=== PATIENT | female | born 1970 | race American Indian/Alaskan Native ===

== ENCOUNTER 2017-07-31 12:10 | Emergency (ER) | payer OTHER ==
--- NOTE | 2017-07-31 13:04 | Emergency Department Report ---
Chief Complaint: Abdominal Pain Stated Complaint: ABDOMINAL PAIN - HPI History of Present Illness: 46-year-old female past medical history ovarian tumors presents with complaint of 4 days of sharp suprapubic discomfort. Denies nausea or vomiting possible subjective fever and chills. Patient awake alert and oriented 3. Denies dysuria but possibly increased urinary frequency. - ROS Review of Systems: History of ovarian tumor resection - Exam Vital Signs: Vital Signs 07/31/17 12:53 Temperature 98.1 F Pulse Rate 69 Respiratory 16 Rate Blood Pressure 136/55 O2 Sat by Pulse 100 Oximetry Physical Exam: Positive suprapubic pain on exam MSE screening note: Focused history and physical exam performed. Due to findings the following was ordered: Screening Assessment/Plan/Differential Dx: Suprapubic pain, pelvic pain female 1- This initial assessment/diagnostic orders/clinical plan/ treatment(s) is/are subject to change based on pt's health status, clinical progression and re- assessment by fellow clinical providers in the ED. Further treatment and workup at subsequent clinical provers discretion. Patient/guardians urged not to elope from ED as their condition may be serious if not clinically assessed and managed. 2-urinalysis, CBC, BMP, STITCH MARKER ultrasound ED Disposition for MSE Condition: Stable Instructions: Abdominal Pain (ED)
--- NOTE | 2017-07-31 14:31 | Ultrasound Report ---
FINAL REPORT PROCEDURE: US TRANSVAGINAL TECHNIQUE: Real-time transvaginal sonography in multiple planes of the pelvis was performed with image documentation. This examination was performed without Doppler. Vascular abnormalities, including ovarian torsion, will not be detectable without Doppler evaluation. CPT 81213 HISTORY: pelvic pain COMPARISON: Transabdominal pelvic ultrasound also performed today. FINDINGS: Report for this exam was generated using images from both the transvaginal and transabdominal scan both of which were performed today. The uterus is anteverted measuring 15.2 x 10.1 x 11.3 centimeter. Mural nodules are present which shows mixed echogenicity and appear to represent fibroids. One is located in the anterior myometrium measuring 4.8 x 1.7 x 4.0 centimeters. One is located in the fundus of the uterus measuring 7.4 x 6.1 x 6.7 centimeter and a 3rd is located posteriorly in the uterine myometrium measuring 7.6 x 7.5 x 6.6 centimeters. Uterus is otherwise unremarkable. The endometrial stripe is not well visualized as it appears to be obscured by the uterine fibroids. Nabothian cysts are visualized. There is minimal nonspecific free fluid in the cul-de-sac. The right ovary was not visualized. No abnormal cystic or solid masses are seen in the right adnexa. The left ovary is visualized with only transabdominal scanning measuring 3.4 x 2.8 x 3.4 centimeter. Simple appearing 2.6 centimeters cyst visualize suggesting a maturing follicle. The technologist attempted Doppler imaging however this was unsuccessful and felt to be secondary to body habitus and location of the ovaries. IMPRESSION: Enlarged uterus secondary to at least 3 large uterine fibroids. The endometrial stripe is obscured by the fibroids and cannot be commented on. Small amount of nonspecific free fluid is seen in the cul-de-sac. Small nabothian cyst visualized. Simple appearing cyst left ovary suggesting maturing follicle. Right ovary was not visualized. No abnormal adnexal masses were seen on the right.
[2017-07-31 14:32] LABS: Basophils % (Auto) 0.6 % (0.0-1.8); Eosinophils % (Auto) 0.7 % (0.0-4.3); Hematocrit 35.9 % (30.3-42.9); Hemoglobin 11.5 gm/dl (10.1-14.3); Lymphocytes # (Auto) 1.6 K/mm3 (1.2-5.4); Mean Corpuscular HGB Conc 32 % (30-34); Mean Corpuscular Hemoglobin 29 pg (28-32); Mean Corpuscular Volume 89 fl (79-97); Monocytes # (Auto) 0.5 K/mm3 (0.0-0.8); Monocytes % (Auto) 7.9 % (0.0-7.3); Platelet Count 448 K/mm3 (140-440); Red Blood Count 4.05 M/mm3 (3.65-5.03); Red Cell Distribution Width 15.2 % (13.2-15.2)
--- NOTE | 2017-07-31 14:32 | Ultrasound Report ---
FINAL REPORT PROCEDURE: Transabdominal pelvic ultrasound TECHNIQUE: Real-time transabdominal sonography in multiple planes of pelvis was performed with image documentation. This examination was performed without Doppler. Vascular abnormalities, including ovarian torsion, will not be detectable without Doppler evaluation. CPT 23966 HISTORY: suprapubic and adnexal pain COMPARISON: Transvaginal pelvic ultrasound also performed today. FINDINGS: Report for this exam was generated using images from both the transabdominal and transvaginal scan both of which were performed today. The uterus is anteverted measuring 15.2 x 10.1 x 11.3 centimeter. Mural nodules are present which shows mixed echogenicity and appear to represent fibroids. One is located in the anterior myometrium measuring 4.8 x 1.7 x 4.0 centimeters. One is located in the fundus of the uterus measuring 7.4 x 6.1 x 6.7 centimeter and a 3rd is located posteriorly in the uterine myometrium measuring 7.6 x 7.5 x 6.6 centimeters. Uterus is otherwise unremarkable. The endometrial stripe is not well visualized as it appears to be obscured by the uterine fibroids. Nabothian cysts are visualized. There is minimal nonspecific free fluid in the cul-de-sac. The right ovary was not visualized. No abnormal cystic or solid masses are seen in the right adnexa. The left ovary is visualized with only transabdominal scanning measuring 3.4 x 2.8 x 3.4 centimeter. Simple appearing 2.6 centimeters cyst visualize suggesting a maturing follicle. The technologist attempted Doppler imaging however this was unsuccessful and felt to be secondary to body habitus and location of the ovaries. IMPRESSION: Enlarged uterus secondary to at least 3 large uterine fibroids. The endometrial stripe is obscured by the fibroids and cannot be commented on. Small amount of nonspecific free fluid is seen in the cul-de-sac. Small nabothian cyst visualized. Simple appearing cyst left ovary suggesting maturing follicle. Right ovary was not visualized. No abnormal adnexal masses were seen on the right.
[2017-07-31 14:56] LABS: BUN/Creatinine Ratio 15; Blood Urea Nitrogen 9 mg/dL (7-17); Calcium 9.1 mg/dL (8.4-10.2); Hemolysis Index 2
[2017-07-31 15:35] LABS: Bilirubin,Urine NEG (Negative); Blood,Urine MOD (Negative); Color,Urine Yellow (Yellow); Mucus,Urine FEW /HPF; Nitrite,Urine NEG (Negative); Protein,Urine <15 mg/dL mg/dL (Negative)
[2017-07-31 15:37] LABS: HCG Qualitative,Urine Negative (Negative)
--- NOTE | 2017-07-31 16:16 | Emergency Department Report ---
ED Female HPI - General Chief complaint: Abdominal Pain Stated complaint: ABDOMINAL PAIN Source: patient Mode of arrival: Ambulatory Limitations: No Limitations - History of Present Illness Initial comments: 46-year-old female past medical history ovarian tumor resection, tubal ligation presents with complaint of 4 days of suprapubic discomfort, crampy discomfort/ pain. She states she has been taking Motrin with minimal relief of her pain. Patient is awake alert and oriented 3 fully lucid and nontoxic appearing. Patient denies fever chills nausea vomiting. Urinating and defecating normally. Patient states she has a slightly increased urinary frequency. Patient states her last menstrual period began on 07/14/17. Vaginal bleeding ended approximately 6 days ago. Patient states that she came to the ED because ibuprofen was not helping her cramping. Denies vaginal discharge otherwise. States she has had pain of this quality in the past. MD Complaint: pelvic pain Onset/Timin -: days(s) Location: suprapubic Severity scale (0 -10): 5 Quality: cramping Consistency: intermittent Improves with: none Are you Now?: No Last Menstrual Period: 07/14/17 EDC: 04/20/18 - Related Data Sexually active: Yes Previous Rx's Medication Instructions Recorded Last Taken Type Azithromycin [Zithromax Z-RODRIGUEZ] 250 mg PO DAILY #6 tablet 07/26/14 Unknown Rx Codeine Phosphate/Guaifenesin 10 ml PO BID #118 ml 07/26/14 Unknown Rx [guaiFENesin-Codeine Syrup] Ibuprofen [Motrin 800 MG tab] 800 mg PO Q8H PRN #21 tablet 07/26/14 Unknown Rx Prednisone [Prednisone 5 mg (6-Day 5 mg PO .TAPER #1 tab.ds.pk 07/26/14 Unknown Rx Pack, 21 Tabs)] Acetaminophen/Codeine [Tylenol #3] 1 tab PO Q8H PRN #15 tablet 02/20/15 Unknown Rx Penicillin Vk [Veetids TAB] 500 mg PO Q8H #30 tablet 02/20/15 Unknown Rx Ibuprofen [Motrin 800 MG tab] 800 mg PO Q8HR PRN #15 tablet 06/09/15 Unknown Rx Acetaminophen/Codeine [Tylenol 1 tab PO Q6H PRN #12 tab 07/31/17 Unknown Rx /Codeine # 3 tab] Naproxen 500 mg PO BID PRN #30 tablet 07/31/17 Unknown Rx Nitrofurantoin Monohyd/M-Cryst 100 mg PO BID #14 capsule 07/31/17 Unknown Rx [Macrobid 100 mg Capsule] Allergies Allergy/AdvReac Type Severity Reaction Status Date / Time No Known Allergies Allergy Verified 02/20/15 18:30 ED Review of Systems ROS: Stated complaint: ABDOMINAL PAIN Other details as noted in HPI Constitutional: denies: chills, fever Eyes: denies: eye pain, eye discharge, vision change ENT: denies: ear pain, throat pain Respiratory: denies: cough, shortness of breath, wheezing Cardiovascular: denies: chest pain, palpitations Endocrine: no symptoms reported Gastrointestinal: denies: abdominal pain, nausea, diarrhea Genitourinary: as per HPI. denies: urgency, dysuria, discharge Musculoskeletal: denies: back pain, joint swelling, arthralgia Skin: denies: rash, lesions Neurological: denies: headache, weakness, paresthesias Psychiatric: denies: anxiety, depression Hematological/Lymphatic: denies: easy bleeding, easy bruising ED Past Medical Hx - Past Medical History Previous Medical History?: Yes Additional medical history: FIBROIDS - Surgical History Past Surgical History?: Yes Additional Surgical History: Partial hysterectomy - Social History Smoking Status: Never Smoker Substance Use Type: None - Medications Home Medications: Home Medications Medication Instructions Recorded Confirmed Last Taken Type Azithromycin [Zithromax Z-RODRIGUEZ] 250 mg PO DAILY #6 tablet 07/26/14 Unknown Rx Codeine Phosphate/Guaifenesin 10 ml PO BID #118 ml 07/26/14 Unknown Rx [guaiFENesin-Codeine Syrup] Ibuprofen [Motrin 800 MG tab] 800 mg PO Q8H PRN #21 tablet 07/26/14 Unknown Rx Prednisone [Prednisone 5 mg (6-Day 5 mg PO .TAPER #1 tab.ds.pk 07/26/14 Unknown Rx Pack, 21 Tabs)] Acetaminophen/Codeine [Tylenol #3] 1 tab PO Q8H PRN #15 tablet 02/20/15 Unknown Rx Penicillin Vk [Veetids TAB] 500 mg PO Q8H #30 tablet 02/20/15 Unknown Rx Ibuprofen [Motrin 800 MG tab] 800 mg PO Q8HR PRN #15 tablet 06/09/15 Unknown Rx Acetaminophen/Codeine [Tylenol 1 tab PO Q6H PRN #12 tab 07/31/17 Unknown Rx /Codeine # 3 tab] Naproxen 500 mg PO BID PRN #30 tablet 07/31/17 Unknown Rx Nitrofurantoin Monohyd/M-Cryst 100 mg PO BID #14 capsule 07/31/17 Unknown Rx [Macrobid 100 mg Capsule] ED Physical Exam - General Limitations: No Limitations General appearance: alert, in no apparent distress - Head Head exam: Present: atraumatic, normocephalic - Eye Eye exam: Present: normal appearance, PERRL, EOMI - ENT ENT exam: Present: mucous membranes moist - Neck Neck exam: Present: normal inspection - Respiratory Respiratory exam: Present: normal lung sounds bilaterally. Absent: respiratory distress - Cardiovascular Cardiovascular Exam: Present: regular rate, normal rhythm. Absent: systolic murmur, diastolic murmur, rubs, gallop - GI/Abdominal GI/Abdominal exam: Present: soft (some mild suprapubic pain on deep palpation), normal bowel sounds - External exam: Present: normal external exam - Extremities Exam Extremities exam: Present: normal inspection - Back Exam Back exam: Present: normal inspection - Neurological Exam Neurological exam: Present: alert, oriented X3, CN II-XII intact, normal gait - Psychiatric Psychiatric exam: Present: normal affect, normal mood - Skin Skin exam: Present: warm, dry, intact, normal color. Absent: rash ED Course Vital Signs 07/31/17 07/31/17 12:53 16:43 Temperature 98.1 F 98.6 F Pulse Rate 69 82 Respiratory 16 18 Rate Blood Pressure 136/55 Blood Pressure 160/88 [Right] O2 Sat by Pulse 100 100 Oximetry ED Medical Decision Making - Lab Data Result diagrams: 07/31/17 14:03 07/31/17 14:03 - Medical Decision Making A/P: Pelvic pain, uterine fibroids 1-ultrasound shows 3 large uterine fibroids. Pain is moderate. Will give patient trial of naproxen and short course Tylenol 3 when necessary 2-follow-up with [facility]. I advised patient that this is important for her medical condition 3-trace leukocytes, patient has urgency will give her Macrobid empirically 4-discussed with Dr. Contreras for discharge Critical care attestation.: If time is entered above; I have spent that time in minutes in the direct care of this critically ill patient, excluding procedure time. ED Disposition Clinical Impression: Pelvic pain Uterine fibroid Qualifiers: Uterine leiomyoma location: intramural Qualified Code(s): D25.1 - Intramural leiomyoma of uterus Disposition: TO HOME OR SELFCARE Is pt being admited?: No Does the pt Need Aspirin: No Condition: Stable Instructions: Uterine Fibroids (ED), Urinary Tract Infection in Women (ED), Abdominal Pain (ED) Prescriptions: Acetaminophen/Codeine [Tylenol /Codeine # 3 tab] 1 tab PO Q6H PRN #12 tab PRN Reason: Pain Naproxen 500 mg PO BID PRN #30 tablet PRN Reason: Pain Nitrofurantoin Monohyd/M-Cryst [Macrobid 100 mg Capsule] 100 mg PO BID #14 capsule Referrals: JW ANDERSON MD [Primary Care Provider] - 3-5 Days [facility] [Provider Group] - 3-5 Days [facility] [Provider [facility]] - 3-5 Days Forms: Work/School Release Form(ED) Time of Disposition: 16:20
[2017-07-31 16:45] VITALS: BP 160/88
== END 2017-07-31 16:43 | disposition home or self-care (01) ==
LOC: ED 12:10
DX: D25.9 Leiomyoma of uterus, unspecified (principal)
CPT/HCPCS: 36415; 76830; 80048; 81001; 81025; 85025; 87086; 93975; 99284

== ENCOUNTER 2018-11-11 07:33 | Inpatient (IN) | payer OTHER ==
[2018-11-11] MEDS ORDERED: ASPIRIN PO ONE (07:39)
[2018-11-11 08:04] LABS: Basophils % (Auto) 0.8 % (0.0-1.8); Eosinophils # (Auto) 0.1 K/mm3 (0.0-0.4); Eosinophils % (Auto) 1.5 % (0.0-4.3); Hematocrit 37.1 % (30.3-42.9); Hemoglobin 12.7 gm/dl (10.1-14.3); Lymphocytes # (Auto) 2.2 K/mm3 (1.2-5.4); Lymphocytes % (Auto) 42.5 % (13.4-35.0); Mean Corpuscular HGB Conc 34 % (30-34); Mean Corpuscular Volume 89 fl (79-97); Monocytes # (Auto) 0.7 K/mm3 (0.0-0.8); Monocytes % (Auto) 13.6 % (0.0-7.3); Platelet Count 332 K/mm3 (140-440); Red Blood Count 4.17 M/mm3 (3.65-5.03); Red Cell Distribution Width 13.8 % (13.2-15.2)
[2018-11-11 08:27] LABS: BUN/Creatinine Ratio 11; Blood Urea Nitrogen 10 mg/dL (7-17); Calcium 9.2 mg/dL (8.4-10.2); Hemolysis Index 15
--- NOTE | 2018-11-11 08:39 | Emergency Department Report ---
ED Chest Pain HPI - General Chief Complaint: Chest Pain Stated Complaint: CHEST PAIN Time Seen by Provider: 11/11/18 08:36 Source: patient Mode of arrival: Ambulatory Limitations: No Limitations - History of Present Illness Initial Comments: This is a 48-year-old female with no prior cardiac workup or visits to the emergency department for chest pain. She states that she was placed on an antibiotic by her dentist developed some abdominal queasiness. One day about a week ago she noted that she was additionally having squeezing in her chest. She took some Rolaids without relief. She has had intermittent episodes of chest squeezing for the last week. She had one last night which radiated to her right shoulder and down her left arm. He had a minimal amount of shortness of breath. She states that she has not experienced that before. She does not have chest squeezing at this time. Patient is not a smoker. She denies SA. She denies FH of CAD. She has not been treated for dyslipidemia. She is somewhat overweight. Pain is not pleuritic. She doesn't report any leg pain or swelling. MD Complaint: chest pain -: Gradual, week(s) Onset: during rest Pain Location: substernal Pain Radiation: LUE Severity: moderate Quality: squeezing Consistency: intermittent, now resolved Improves With: nothing Worsens With: nothing re: nausea, dyspnea Other Symptoms: other (think she has some GERD symptoms too). denies: cough, fever, syncope, rash Aspirin use within the Past 7 Days: (0) No - Related Data Previous Rx's Medication Instructions Recorded Last Taken Type Azithromycin [Zithromax Z-RODRIGUEZ] 250 mg PO DAILY #6 tablet 07/26/14 Unknown Rx Codeine Phosphate/Guaifenesin 10 ml PO BID #118 ml 07/26/14 Unknown Rx [guaiFENesin-Codeine Syrup] Ibuprofen [Motrin 800 MG tab] 800 mg PO Q8H PRN #21 tablet 07/26/14 Unknown Rx Prednisone [Prednisone 5 mg (6-Day 5 mg PO .TAPER #1 tab.ds.pk 07/26/14 Unknown Rx Pack, 21 Tabs)] Acetaminophen/Codeine [Tylenol #3] 1 tab PO Q8H PRN #15 tablet 02/20/15 Unknown Rx Penicillin Vk [Veetids TAB] 500 mg PO Q8H #30 tablet 02/20/15 Unknown Rx Ibuprofen [Motrin 800 MG tab] 800 mg PO Q8HR PRN #15 tablet 06/09/15 Unknown Rx Acetaminophen/Codeine [Tylenol 1 tab PO Q6H PRN #12 tab 07/31/17 Unknown Rx /Codeine # 3 tab] Naproxen 500 mg PO BID PRN #30 tablet 07/31/17 Unknown Rx Nitrofurantoin Monohyd/M-Cryst 100 mg PO BID #14 capsule 07/31/17 Unknown Rx [Macrobid 100 mg Capsule] Allergies Allergy/AdvReac Type Severity Reaction Status Date / Time No Known Allergies Allergy Verified 11/11/18 07:34 Heart Score - HEART Score History: Slightly suspicious EKG: Normal Age: 45-65 Risk factors: 1-2 risk factors Troponin: < normal limit HEART Score: 2 - Critical Actions Critical Actions: 0-3 pts:0.9-1.7%risk of adverse cardiac event.Candidate for discharge ED Review of Systems ROS: Stated complaint: CHEST PAIN Other details as noted in HPI Constitutional: denies: chills, fever Eyes: denies: eye pain, eye discharge, vision change ENT: denies: ear pain, throat pain Respiratory: denies: cough, shortness of breath, wheezing Cardiovascular: denies: chest pain, palpitations Endocrine: no symptoms reported Gastrointestinal: denies: abdominal pain, nausea, diarrhea Genitourinary: denies: urgency, dysuria, discharge Musculoskeletal: denies: back pain, joint swelling, arthralgia Skin: denies: rash, lesions Neurological: denies: headache, weakness, paresthesias Psychiatric: denies: anxiety, depression Hematological/Lymphatic: denies: easy bleeding, easy bruising ED Past Medical Hx - Past Medical History Additional medical history: FIBROIDS - Surgical History Additional Surgical History: Partial hysterectomy - Social History Smoking Status: Never Smoker Substance Use Type: None - Medications Home Medications: Home Medications Medication Instructions Recorded Confirmed Last Taken Type Azithromycin [Zithromax Z-RODRIGUEZ] 250 mg PO DAILY #6 tablet 07/26/14 Unknown Rx Codeine Phosphate/Guaifenesin 10 ml PO BID #118 ml 07/26/14 Unknown Rx [guaiFENesin-Codeine Syrup] Ibuprofen [Motrin 800 MG tab] 800 mg PO Q8H PRN #21 tablet 07/26/14 Unknown Rx Prednisone [Prednisone 5 mg (6-Day 5 mg PO .TAPER #1 tab.ds.pk 07/26/14 Unknown Rx Pack, 21 Tabs)] Acetaminophen/Codeine [Tylenol #3] 1 tab PO Q8H PRN #15 tablet 02/20/15 Unknown Rx Penicillin Vk [Veetids TAB] 500 mg PO Q8H #30 tablet 02/20/15 Unknown Rx Ibuprofen [Motrin 800 MG tab] 800 mg PO Q8HR PRN #15 tablet 06/09/15 Unknown Rx Acetaminophen/Codeine [Tylenol 1 tab PO Q6H PRN #12 tab 07/31/17 Unknown Rx /Codeine # 3 tab] Naproxen 500 mg PO BID PRN #30 tablet 07/31/17 Unknown Rx Nitrofurantoin Monohyd/M-Cryst 100 mg PO BID #14 capsule 07/31/17 Unknown Rx [Macrobid 100 mg Capsule] ED Physical Exam - General Limitations: No Limitations General appearance: alert, in no apparent distress - Head Head exam: Present: atraumatic, normocephalic - Eye Eye exam: Present: normal appearance. Absent: scleral icterus - ENT ENT exam: Present: mucous membranes moist - Neck Neck exam: Present: normal inspection. Absent: meningismus - Respiratory Respiratory exam: Present: normal lung sounds bilaterally. Absent: respiratory distress - Cardiovascular Cardiovascular Exam: Present: regular rate, normal rhythm. Absent: systolic murmur, diastolic murmur, rubs, gallop - GI/Abdominal GI/Abdominal exam: Present: soft, normal bowel sounds. Absent: distended, tenderness, guarding, rebound, rigid - Extremities Exam Extremities exam: Present: normal inspection - Back Exam Back exam: Present: normal inspection - Neurological Exam Neurological exam: Present: alert, oriented X3, CN II-XII intact. Absent: motor sensory deficit - Psychiatric Psychiatric exam: Present: normal mood, anxious - Skin Skin exam: Present: warm, dry, intact, normal color. Absent: rash ED Course Vital Signs 11/11/18 07:38 Temperature 97.7 F Pulse Rate 75 Respiratory 18 Rate Blood Pressure 112/91 O2 Sat by Pulse 99 Oximetry - Reevaluation(s) Reevaluation #1: Discussed with hospitalist. Further workup and evaluation per hospitalist team. 11/11/18 08:50 HAYLIE score - Haylie Score Age > 65: (0) No Aspirin use within the Past 7 Days: (0) No 3 or more CAD Risk Factors: (0) No 2 or more Angina events in past 24 hrs: (0) No Known CAD with more than 50% Stenosis: (0) No Elevated Cardiac Markers: (0) No ST Deviation Greater than 0.5mm: (0) No HAYLIE Score: 0 ED Medical Decision Making - Lab Data Result diagrams: 11/11/18 07:49 11/11/18 07:46 Laboratory Results - last 24 hr 11/11/18 11/11/18 07:46 07:49 WBC 5.2 RBC 4.17 Hgb 12.7 Hct 37.1 MCV 89 MCH 30 MCHC 34 RDW 13.8 Plt Count 332 Lymph % (Auto) 42.5 H [place] % (Auto) 13.6 H Eos % (Auto) 1.5 Baso % (Auto) 0.8 Lymph # 2.2 [place] # 0.7 Eos # 0.1 Baso # 0.0 Seg Neutrophils % 41.6 Seg Neutrophils # 2.2 Sodium 136 L Potassium 3.9 Chloride 102.4 Carbon Dioxide 23 Anion Gap 15 BUN 10 Creatinine 0.9 Estimated GFR > 60 BUN/Creatinine Ratio 11 Glucose 101 H Calcium 9.2 Troponin T < 0.010 - EKG Data -: EKG Interpreted by [place] EKG shows normal: sinus rhythm, axis, intervals, QRS complexes, ST-T waves Rate: normal - EKG Data Interpretation: normal EKG - Radiology Data Radiology results: report reviewed (no acute process), image reviewed Critical care attestation.: If time is entered above; I have spent that time in minutes in the direct care of this critically ill patient, excluding procedure time. ED Disposition Clinical Impression: Chest pain Qualifiers: Chest pain type: unspecified Qualified Code(s): R07.9 - Chest pain, unspecified Disposition: 09 OP ADMIT IP TO THIS HOSP Is pt being admited?: Yes Does the pt Need Aspirin: Yes Condition: Stable Instructions: Chest Pain (ED) Referrals: PRIMARY CARE, [Primary Care Provider] - 3-5 Days Time of Disposition: 08:51
[2018-11-11] MEDS ORDERED: PROTONIX PO ONE (08:52)
--- NOTE | 2018-11-11 09:09 | XRay Report ---
PROCEDURE: XR CHEST ROUTINE 2V TECHNIQUE: Chest radiograph, PA and lateral views. HISTORY: Chest Pain COMPARISONS: None currently available. FINDINGS: Cardiac silhouette is within normal limits. There is no effusion. There is no pneumothorax. There is no consolidation. There are no suspicious osseous lesions. IMPRESSION: * No acute cardiopulmonary findings. This document is electronically signed by Russell Haines MD., November 11 2018 09:07:18 AM ET
[2018-11-11] MEDS ORDERED: ZOFRAN IV PRN (13:45)
[2018-11-11] MEDS ORDERED: TYLENOL PO PRN (13:45)
--- NOTE | 2018-11-11 13:45 | History and Physical Report ---
History of Present Illness Date of admission: 11/11/18 08:52 Chief complaint: Chest pains History of present illness: Patient is a 48 yo woman with a history of anemia with menorrhagia from large fibroids and GERD who present to [facility] ED with severe intermittent nonradiating squeezing substernal chest pains without aggravating or relieving factors that started 1 week ago. She decided to come to the ED last night because CP started to radiate with numbling and tingling down left arm and lasted longer, 45 minutes. She has been taking ibuprofen for the fibroid pains. She was also took unspecified abx from a Dentist, made her nauseated. She took Tums without relief. PMH: as hpi PSH: p.hysterectomy, SH: no tob/etoh/drugs FH: hypertension, mother had AMI in her 50, survived breast cancer, still living ROS: Constitutional: denies: fever ENT: denies: throat or neck pain Respiratory: denies: cough, shortness of breath Cardiovascular: + chest pain Endocrine: denies unexplained weight loss or gain Gastrointestinal: + epigastic abdominal pain, nausea Genitourinary: denies: dysuria Rectal: denies no incontinence, no bleeding, no itching, no discharge Musculoskeletal: denies swelling, myaglia, muscle weakness Skin: denies: rash Neurological: denies: headache Hematological/Lymphatic: denies: easy bleeding or easy bruising Allergic/Immunologic: no urticaria, no allergic rhinitis, no anaphylaxis Psych: denies sadness or hopelessness, SI/HI Medications and Allergies Allergies Allergy/AdvReac Type Severity Reaction Status Date / Time No Known Allergies Allergy Verified 11/11/18 07:34 Home Medications Medication Instructions Recorded Confirmed Last Taken Type Ibuprofen [Motrin 800 MG tab] 800 mg PO Q8H PRN #21 tablet 07/26/14 11/11/18 Unknown Rx Ibuprofen [Motrin 800 MG tab] 800 mg PO Q8HR PRN #15 tablet 06/09/15 11/11/18 Unknown Rx Exam - Physical Exam Narrative exam: Gen: WDWN, NAD, Awake, Alert, Orientated x 3 HEENT: NCAT, EOMI, PERRL, OP Clear Neck: supple, no adenopathy, no thyromegaly, no JVD CVS/Heart: RRR, normal S1S2, pulses present bilaterally Chest/Lungs: CTA B, Symmetrical chest expansion, good air entry bilaterally GI/Abdomen: soft, epigastric tenderness, uterus in her stomach, good bowel sounds, no guarding or rebound /Bladder: no suprapubic tenderness, no CVA or paraspinal tenderness Extermity/Skin: no c/c/e, no obvious rash MSK: FROM x 4 Neuro: CN 2-12 grossly intact, no new focal deficits Psych: calm - Constitutional Vitals: Temp Pulse Resp BP Pulse Ox 97.7 F 74 16 148/78 99 11/11/18 07:38 11/11/18 10:17 11/11/18 10:17 11/11/18 10:17 11/11/18 10:17 Results - Labs CBC & Chem 7: 11/11/18 07:49 11/11/18 07:46 Labs: Abnormal lab results 11/11/18 11/11/18 Range/Units 07:46 07:49 Lymph % (Auto) 42.5 H (13.4-35.0) % [place] % (Auto) 13.6 H (0.0-7.3) % Sodium 136 L (137-145) mmol/L Glucose 101 H (65-100) mg/dL Assessment and Plan Patient is a 48 yo woman with a history of anemia with menorrhagia from large fibroids and GERD who present to [facility] ED with severe intermittent nonradiating squeezing substernal chest pains without aggravating or relieving factors that started 1 week ago. She decided to come to the ED last night because CP started to radiate with numbling and tingling down left arm and lasted longer, 45 minutes. She has been taking ibuprofen for the fibroid pains. She was also took unspecified abx from a Dentist, made her nauseated. She took Tums without relief. Chest pains appears atypical: stress test on Tuesday, stop Motrin advised, treat with pPi GERD related CP suspected: treat with PPi Anemia; monitor closely
[2018-11-11] MEDS ORDERED: K-DUR PO ONE ×2 (14:07→15:00)
[2018-11-11] MEDS ORDERED: MORPHINE ONE (14:08)
[2018-11-11] MEDS: MORPHINE IV PRN ×2 (14:21→23:06)
[2018-11-11] MEDS ORDERED: AMBIEN PO PRN (22:00)
[2018-11-12 08:07] LABS: Hematocrit 36.6 % (30.3-42.9); Hemoglobin 12.2 gm/dl (10.1-14.3); Mean Corpuscular HGB Conc 33 % (30-34); Mean Corpuscular Volume 90 fl (79-97); Platelet Count 322 K/mm3 (140-440); Red Blood Count 4.08 M/mm3 (3.65-5.03); Red Cell Distribution Width 13.9 % (13.2-15.2)
[2018-11-12 08:33] LABS: BUN/Creatinine Ratio 17; Blood Urea Nitrogen 12 mg/dL (7-17); Chol/HDL Ratio 3.78 %; HDL Cholesterol 38 mg/dL (40-59); Hemolysis Index 2; LDL Cholesterol,Direct 104 mg/dL (50-130)
--- NOTE | 2018-11-12 11:33 | Progress Note ---
Assessment and Plan Assessment and plan: Patient is a 48 yo woman with a history of anemia with menorrhagia from large fibroids and GERD who present to [facility] ED with severe intermittent nonradiating squeezing substernal chest pains without aggravating or relieving factors that started 1 week ago. She decided to come to the ED last night because CP started to radiate with numbling and tingling down left arm and lasted longer, 45 minutes. She has been taking ibuprofen for the fibroid pains. She was also took unspecified abx from a Dentist, made her nauseated. She took Tums without relief. Chest pains appears atypical: stress test on Tuesday, stop Motrin advised, treat with pPi GERD related CP suspected: treat with PPi H/o Anemia with fibroids, stable monitor closely Headaches, intermittent: pain control Stress test tomorrow, if negative then possible EGD Consulted GI History Interval history: Patient was seen and examined. Follow-up on current diagnosis of CP/epigastric pains and nausea, still present. Overnight uneventful. Patient denies any shortness breath. Imaging, nursing note, chart, labs and old chart reviewed. Discussed with patient. Also moderate pain control. Hospitalist Physical - Physical exam Narrative exam: Gen: WDWN, NAD, Awake, Alert, Orientated x 3 HEENT: NCAT, EOMI, PERRL, OP Clear Neck: supple, no adenopathy, no thyromegaly, no JVD CVS/Heart: RRR, normal S1S2, pulses present bilaterally Chest/Lungs: CTA B, Symmetrical chest expansion, good air entry bilaterally GI/Abdomen: soft, epigastric tenderness, uterus in her stomach, good bowel sounds, no guarding or rebound /Bladder: no suprapubic tenderness, no CVA or paraspinal tenderness Extermity/Skin: no c/c/e, no obvious rash MSK: FROM x 4 Neuro: CN 2-12 grossly intact, no new focal deficits Psych: calm - Constitutional Vitals: Temp Pulse Resp BP Pulse Ox 98.0 F 66 16 122/69 99 11/12/18 09:12 11/12/18 09:12 11/12/18 09:12 11/12/18 09:12 11/12/18 09:12 Results - Labs CBC & Chem 7: 11/12/18 07:38 11/12/18 07:38 Labs: Laboratory Last Values WBC 4.4 K/mm3 (4.5-11.0) L 11/12/18 07:38 RBC 4.08 M/mm3 (3.65-5.03) 11/12/18 07:38 Hgb 12.2 gm/dl (10.1-14.3) 11/12/18 07:38 Hct 36.6 % (30.3-42.9) 11/12/18 07:38 MCV 90 fl (79-97) 11/12/18 07:38 MCH 30 pg (28-32) 11/12/18 07:38 MCHC 33 % (30-34) 11/12/18 07:38 RDW 13.9 % (13.2-15.2) 11/12/18 07:38 Plt Count 322 K/mm3 (140-440) 11/12/18 07:38 Lymph % (Auto) 42.5 % (13.4-35.0) H 11/11/18 07:49 [place] % (Auto) 13.6 % (0.0-7.3) H 11/11/18 07:49 Eos % (Auto) 1.5 % (0.0-4.3) 11/11/18 07:49 Baso % (Auto) 0.8 % (0.0-1.8) 11/11/18 07:49 Lymph # 2.2 K/mm3 (1.2-5.4) 11/11/18 07:49 [place] # 0.7 K/mm3 (0.0-0.8) 11/11/18 07:49 Eos # 0.1 K/mm3 (0.0-0.4) 11/11/18 07:49 Baso # 0.0 K/mm3 (0.0-0.1) 11/11/18 07:49 Seg Neutrophils % 41.6 % (40.0-70.0) 11/11/18 07:49 Seg Neutrophils # 2.2 K/mm3 (1.8-7.7) 11/11/18 07:49 Sodium 139 mmol/L (137-145) 11/12/18 07:38 Potassium 4.2 mmol/L (3.6-5.0) 11/12/18 07:38 Chloride 106.6 mmol/L (98-107) 11/12/18 07:38 Carbon Dioxide 22 mmol/L (22-30) 11/12/18 07:38 Anion Gap 15 mmol/L 11/12/18 07:38 BUN 12 mg/dL (7-17) 11/12/18 07:38 Creatinine 0.7 mg/dL (0.7-1.2) 11/12/18 07:38 Estimated GFR > 60 ml/min 11/12/18 07:38 BUN/Creatinine Ratio 17 % 11/12/18 07:38 Glucose 101 mg/dL (65-100) H 11/12/18 07:38 Calcium 9.0 mg/dL (8.4-10.2) 11/12/18 07:38 Troponin T < 0.010 ng/mL (0.00-0.029) 11/11/18 13:26 Triglycerides 76 mg/dL (2-149) 11/12/18 07:38 Cholesterol 144 mg/dL (50-199) 11/12/18 07:38 LDL Cholesterol Direct 104 mg/dL (50-130) 11/12/18 07:38 HDL Cholesterol 38 mg/dL (40-59) L 11/12/18 07:38 Cholesterol/HDL Ratio 3.78 % 11/12/18 07:38 TSH 2.580 mlU/mL (0.270-4.200) 11/12/18 07:38 Active Medications - Current Medications Current Medications: Generic Name Dose Route Start Last Admin Trade Name Freq PRN Reason Stop Dose Admin Acetaminophen 650 mg 11/11/18 13:45 11/11/18 19:40 Tylenol PO 650 mg Q6H PRN Administration Non Cardiac Pain or Temp>100.5 Acetaminophen/Hydrocodone Bitart 1 each 11/11/18 13:45 [place] 5/325 PO Q4H PRN Pain, Moderate (4-6) Heparin Sodium (Porcine) 5,000 unit 11/12/18 14:00 Heparin SUB-Q Q12HR SCOOTER Morphine Sulfate 2 mg 11/11/18 13:45 11/11/18 23:06 Morphine IV 2 mg Q4H PRN Administration Pain , Severe (7-10) Ondansetron HCl 4 mg 11/11/18 13:45 Zofran IV Q4H PRN Nausea And Vomiting Zolpidem Tartrate 5 mg 11/11/18 22:00 Ambien PO QHS PRN Sleep
[2018-11-12] MEDS: PROTONIX PO SCH ×2 (13:42→21:51)
[2018-11-12] MEDS ORDERED: HEPARIN SUB-Q SCH (14:00)
[2018-11-12] MEDS: NORCO 5/325 PO PRN (21:51)
[2018-11-13 05:47] LABS: BUN/Creatinine Ratio 15; Blood Urea Nitrogen 12 mg/dL (7-17); Calcium 8.8 mg/dL (8.4-10.2); Hemolysis Index 8
[2018-11-13 05:55] LABS: Hematocrit 36.3 % (30.3-42.9); Hemoglobin 12.4 gm/dl (10.1-14.3); Mean Corpuscular Volume 89 fl (79-97); Red Blood Count 4.09 M/mm3 (3.65-5.03)
[2018-11-13 05:56] LABS: Mean Corpuscular HGB Conc 34 % (30-34); Platelet Count 312 K/mm3 (140-440); Red Cell Distribution Width 13.8 % (13.2-15.2)
--- NOTE | 2018-11-13 09:04 | Progress Note ---
Assessment and Plan Assessment and plan: Patient is a 48 yo woman with a history of anemia with menorrhagia from large fibroids and GERD who present to [facility] ED with severe intermittent nonradiating squeezing substernal chest pains without aggravating or relieving factors that started 1 week ago. She decided to come to the ED last night because CP started to radiate with numbling and tingling down left arm and lasted longer, 45 minutes. She has been taking ibuprofen for the fibroid pains. She was also took unspecified abx from a Dentist, made her nauseated. She took Tums without relief. Chest pains appears atypical: stress test on Tuesday, stop Motrin advised, treat with pPi GERD related CP suspected: treat with PPi and consulted GI H/o Anemia with fibroids, stable monitor closely Headaches: pain control, CT head DVT ppx; sq heparin Stress test today, if negative then possible EGD follow up Ct head for continous headaches Consulted GI Disposition: continue inpatient care, hopefully d/c today if stress test negative and GI clears History Interval history: Patient was seen and examined. Follow-up on current diagnosis of CP/epigastric pains and nausea, still present. Overnight uneventful. Patient denies any shortness breath. Imaging, nursing note, chart, labs and old chart reviewed. Discussed with patient. Also moderate pain control. Hospitalist Physical - Physical exam Narrative exam: Gen: WDWN, NAD, Awake, Alert, Orientated x 3 HEENT: NCAT, EOMI, PERRL, OP Clear Neck: supple, no adenopathy, no thyromegaly, no JVD CVS/Heart: RRR, normal S1S2, pulses present bilaterally Chest/Lungs: CTA B, Symmetrical chest expansion, good air entry bilaterally GI/Abdomen: soft, epigastric tenderness, uterus in her stomach, good bowel sounds, no guarding or rebound /Bladder: no suprapubic tenderness, no CVA or paraspinal tenderness Extermity/Skin: no c/c/e, no obvious rash MSK: FROM x 4 Neuro: CN 2-12 grossly intact, no new focal deficits Psych: calm - Constitutional Vitals: Temp Pulse Resp BP Pulse Ox 97.4 F L 66 20 125/75 100 11/13/18 04:56 11/13/18 04:56 11/13/18 04:56 11/13/18 04:56 11/13/18 04:56 Results - Labs CBC & Chem 7: 11/13/18 05:11 11/13/18 05:11 Labs: Laboratory Last Values WBC 4.5 K/mm3 (4.5-11.0) 11/13/18 05:11 RBC 4.09 M/mm3 (3.65-5.03) 11/13/18 05:11 Hgb 12.4 gm/dl (10.1-14.3) 11/13/18 05:11 Hct 36.3 % (30.3-42.9) 11/13/18 05:11 MCV 89 fl (79-97) 11/13/18 05:11 MCH 30 pg (28-32) 11/13/18 05:11 MCHC 34 % (30-34) 11/13/18 05:11 RDW 13.8 % (13.2-15.2) 11/13/18 05:11 Plt Count 312 K/mm3 (140-440) 11/13/18 05:11 Lymph % (Auto) 42.5 % (13.4-35.0) H 11/11/18 07:49 [place] % (Auto) 13.6 % (0.0-7.3) H 11/11/18 07:49 Eos % (Auto) 1.5 % (0.0-4.3) 11/11/18 07:49 Baso % (Auto) 0.8 % (0.0-1.8) 11/11/18 07:49 Lymph # 2.2 K/mm3 (1.2-5.4) 11/11/18 07:49 [place] # 0.7 K/mm3 (0.0-0.8) 11/11/18 07:49 Eos # 0.1 K/mm3 (0.0-0.4) 11/11/18 07:49 Baso # 0.0 K/mm3 (0.0-0.1) 11/11/18 07:49 Seg Neutrophils % 41.6 % (40.0-70.0) 11/11/18 07:49 Seg Neutrophils # 2.2 K/mm3 (1.8-7.7) 11/11/18 07:49 Sodium 139 mmol/L (137-145) 11/13/18 05:11 Potassium 4.1 mmol/L (3.6-5.0) 11/13/18 05:11 Chloride 105.2 mmol/L (98-107) 11/13/18 05:11 Carbon Dioxide 24 mmol/L (22-30) 11/13/18 05:11 Anion Gap 14 mmol/L 11/13/18 05:11 BUN 12 mg/dL (7-17) 11/13/18 05:11 Creatinine 0.8 mg/dL (0.7-1.2) 11/13/18 05:11 Estimated GFR > 60 ml/min 11/13/18 05:11 BUN/Creatinine Ratio 15 % 11/13/18 05:11 Glucose 109 mg/dL (65-100) H 11/13/18 05:11 Calcium 8.8 mg/dL (8.4-10.2) 11/13/18 05:11 Troponin T < 0.010 ng/mL (0.00-0.029) 11/11/18 13:26 Triglycerides 76 mg/dL (2-149) 11/12/18 07:38 Cholesterol 144 mg/dL (50-199) 11/12/18 07:38 LDL Cholesterol Direct 104 mg/dL (50-130) 11/12/18 07:38 HDL Cholesterol 38 mg/dL (40-59) L 11/12/18 07:38 Cholesterol/HDL Ratio 3.78 % 11/12/18 07:38 Lipase 24 units/L (13-60) 11/13/18 05:11 TSH 2.580 mlU/mL (0.270-4.200) 11/12/18 07:38 Active Medications - Current Medications Current Medications: Generic Name Dose Route Start Last Admin Trade Name Freq PRN Reason Stop Dose Admin Acetaminophen 650 mg 11/11/18 13:45 11/11/18 19:40 Tylenol PO 650 mg Q6H PRN Administration Non Cardiac Pain or Temp>100.5 Acetaminophen/Hydrocodone Bitart 1 each 11/11/18 13:45 11/12/18 21:51 [place] 5/325 PO 1 each Q4H PRN Administration Pain, Moderate (4-6) Morphine Sulfate 2 mg 11/11/18 13:45 11/11/18 23:06 Morphine IV 2 mg Q4H PRN Administration Pain , Severe (7-10) Ondansetron HCl 4 mg 11/11/18 13:45 Zofran IV Q4H PRN Nausea And Vomiting Pantoprazole Sodium 40 mg 11/12/18 13:00 11/12/18 21:51 Protonix PO 40 mg BID SCOOTER Administration Zolpidem Tartrate 5 mg 11/11/18 22:00 Ambien PO QHS PRN Sleep
--- NOTE | 2018-11-13 09:07 | Progress Note ---
Assessment and Plan Assessment and plan: Patient is a 48 yo woman with a history of anemia with menorrhagia from large fibroids and GERD who present to [facility] ED with severe intermittent nonradiating squeezing substernal chest pains without aggravating or relieving factors that started 1 week ago. She decided to come to the ED last night because CP started to radiate with numbling and tingling down left arm and lasted longer, 45 minutes. She has been taking ibuprofen for the fibroid pains. She was also took unspecified abx from a Dentist, made her nauseated. She took Tums without relief. Chest pains appears atypical: stress test on Tuesday, stop Motrin advised, treat with pPi GERD related CP suspected: treat with PPi and consulted GI H/o Anemia with fibroids, stable monitor closely Headaches: pain control, CT head DVT ppx; sq heparin Stress test today, if negative then possible EGD follow up Ct head for continuos headaches Consulted GI Disposition: hopefully d/c today if stress test negative and GI clears History Interval history: Patient was seen and examined. Follow-up on current diagnosis of CP/epigastric pains and nausea, still present. Overnight uneventful. Patient denies any shortness breath. Imaging, nursing note, chart, labs and old chart reviewed. D iscussed with patient. Also moderate pain control. Hospitalist Physical - Physical exam Narrative exam: Gen: WDWN, NAD, Awake, Alert, Orientated x 3 HEENT: NCAT, EOMI, PERRL, OP Clear Neck: supple, no adenopathy, no thyromegaly, no JVD CVS/Heart: RRR, normal S1S2, pulses present bilaterally Chest/Lungs: CTA B, Symmetrical chest expansion, good air entry bilaterally GI/Abdomen: soft, epigastric tenderness, uterus in her stomach, good bowel sounds, no guarding or rebound /Bladder: no suprapubic tenderness, no CVA or paraspinal tenderness Extermity/Skin: no c/c/e, no obvious rash MSK: FROM x 4 Neuro: CN 2-12 grossly intact, no new focal deficits Psych: calm - Constitutional Vitals: Temp Pulse Resp BP Pulse Ox 97.4 F L 66 20 125/75 100 11/13/18 04:56 11/13/18 04:56 11/13/18 04:56 11/13/18 04:56 11/13/18 04:56 Results - Labs CBC & Chem 7: 11/13/18 05:11 11/13/18 05:11 Labs: Laboratory Last Values WBC 4.5 K/mm3 (4.5-11.0) 11/13/18 05:11 RBC 4.09 M/mm3 (3.65-5.03) 11/13/18 05:11 Hgb 12.4 gm/dl (10.1-14.3) 11/13/18 05:11 Hct 36.3 % (30.3-42.9) 11/13/18 05:11 MCV 89 fl (79-97) 11/13/18 05:11 MCH 30 pg (28-32) 11/13/18 05:11 MCHC 34 % (30-34) 11/13/18 05:11 RDW 13.8 % (13.2-15.2) 11/13/18 05:11 Plt Count 312 K/mm3 (140-440) 11/13/18 05:11 Lymph % (Auto) 42.5 % (13.4-35.0) H 11/11/18 07:49 [place] % (Auto) 13.6 % (0.0-7.3) H 11/11/18 07:49 Eos % (Auto) 1.5 % (0.0-4.3) 11/11/18 07:49 Baso % (Auto) 0.8 % (0.0-1.8) 11/11/18 07:49 Lymph # 2.2 K/mm3 (1.2-5.4) 11/11/18 07:49 [place] # 0.7 K/mm3 (0.0-0.8) 11/11/18 07:49 Eos # 0.1 K/mm3 (0.0-0.4) 11/11/18 07:49 Baso # 0.0 K/mm3 (0.0-0.1) 11/11/18 07:49 Seg Neutrophils % 41.6 % (40.0-70.0) 11/11/18 07:49 Seg Neutrophils # 2.2 K/mm3 (1.8-7.7) 11/11/18 07:49 Sodium 139 mmol/L (137-145) 11/13/18 05:11 Potassium 4.1 mmol/L (3.6-5.0) 11/13/18 05:11 Chloride 105.2 mmol/L (98-107) 11/13/18 05:11 Carbon Dioxide 24 mmol/L (22-30) 11/13/18 05:11 Anion Gap 14 mmol/L 11/13/18 05:11 BUN 12 mg/dL (7-17) 11/13/18 05:11 Creatinine 0.8 mg/dL (0.7-1.2) 11/13/18 05:11 Estimated GFR > 60 ml/min 11/13/18 05:11 BUN/Creatinine Ratio 15 % 11/13/18 05:11 Glucose 109 mg/dL (65-100) H 11/13/18 05:11 Calcium 8.8 mg/dL (8.4-10.2) 11/13/18 05:11 Troponin T < 0.010 ng/mL (0.00-0.029) 11/11/18 13:26 Triglycerides 76 mg/dL (2-149) 11/12/18 07:38 Cholesterol 144 mg/dL (50-199) 11/12/18 07:38 LDL Cholesterol Direct 104 mg/dL (50-130) 11/12/18 07:38 HDL Cholesterol 38 mg/dL (40-59) L 11/12/18 07:38 Cholesterol/HDL Ratio 3.78 % 11/12/18 07:38 Lipase 24 units/L (13-60) 11/13/18 05:11 TSH 2.580 mlU/mL (0.270-4.200) 11/12/18 07:38 Active Medications - Current Medications Current Medications: Generic Name Dose Route Start Last Admin Trade Name Freq PRN Reason Stop Dose Admin Acetaminophen 650 mg 11/11/18 13:45 11/11/18 19:40 Tylenol PO 650 mg Q6H PRN Administration Non Cardiac Pain or Temp>100.5 Acetaminophen/Hydrocodone Bitart 1 each 11/11/18 13:45 11/12/18 21:51 [place] 5/325 PO 1 each Q4H PRN Administration Pain, Moderate (4-6) Heparin Sodium (Porcine) 5,000 unit 11/14/18 22:00 Heparin SUB-Q Q12HR SCOOTER Morphine Sulfate 2 mg 11/11/18 13:45 11/11/18 23:06 Morphine IV 2 mg Q4H PRN Administration Pain , Severe (7-10) Ondansetron HCl 4 mg 11/11/18 13:45 Zofran IV Q4H PRN Nausea And Vomiting Pantoprazole Sodium 40 mg 11/12/18 13:00 11/12/18 21:51 Protonix PO 40 mg BID SCOOTER Administration Zolpidem Tartrate 5 mg 11/11/18 22:00 Ambien PO QHS PRN Sleep
--- NOTE | 2018-11-13 09:12 | Discharge Summary ---
Providers - Providers Date of Admission: 11/11/18 08:52 Date of discharge: 11/13/18 Attending physician: CHAZ ZARAGOZA 11/12/18 11:28 Consult to Physician [CONS] Routine Comment: Consulting Provider: JAE JIANG Physician Instructions: Reason For Exam: Abd pains,intractable nausea [facility] Hospital[facility] Condition: Stable Hospital course: Patient is a 48 yo woman with a history of anemia with menorrhagia from large fibroids and GERD who present to [facility] ED with severe intermittent nonradiating squeezing substernal chest pains without aggravating or relieving factors that started 1 week ago. She decided to come to the ED last night because CP started to radiate with numbling and tingling down left arm and lasted longer, 45 minutes. She has been taking ibuprofen for the fibroid pains. She was also took unspecified abx from a Dentist, made her nauseated. She took Tums without reli ef. Chest pains appears atypical: stress test on Tuesday, stop Motrin advised, treat with pPi GERD related CP suspected: treat with PPi and consulted GI H/o Anemia with fibroids, stable monitor closely Headaches: pain control, CT head DVT ppx; sq heparin Stress test today, if negative then possible EGD follow up Ct head for continuos headaches Consulted GI Disposition: hopefully d/c today if stress test negative and GI clears Disposition: DC-01 TO HOME OR SELFCARE Time spent for discharge: 35 minutes Core Measure Documentation - Palliative Care Palliative Care/ Comfort Measures: Not Applicable - Core Measures Any of the following diagnoses?: none - VTE Discharge Requirements Deep Vein Thrombosis/Pulmonary Embolism Present on Admission: No Has pt received <5 days of overlap therapy or INR<2.0: No Anticoagulant overlap therapy prescribed at discharge: No Contraindication No Overlap Therapy order at DC: Not Indicated Exam - Physical Exam Narrative exam: Gen: WDWN, NAD, Awake, Alert, Orientated x 3 HEENT: NCAT, EOMI, PERRL, OP Clear Neck: supple, no adenopathy, no thyromegaly, no JVD CVS/Heart: RRR, normal S1S2, pulses present bilaterally Chest/Lungs: CTA B, Symmetrical chest expansion, good air entry bilaterally GI/Abdomen: soft, epigastric tenderness, uterus in her stomach, good bowel sounds, no guarding or rebound /Bladder: no suprapubic tenderness, no CVA or paraspinal tenderness Extermity/Skin: no c/c/e, no obvious rash MSK: FROM x 4 Neuro: CN 2-12 grossly intact, no new focal deficits Psych: calm - Constitutional Vitals: Temp Pulse Resp BP Pulse Ox 97.4 F L 66 20 125/75 100 11/13/18 04:56 11/13/18 04:56 11/13/18 04:56 11/13/18 04:56 11/13/18 04:56 Plan Activity: other (no strenous activity until cleared by PCP) Diet: regular Follow up with: PRIMARY CAREMD [Referring] - 3-5 Days ANALILIA ANN MD [Staff Physician] - 7 Days JAE JIANG MD [Staff Physician] - 7 Days Forms: Work/School Release Form Prescriptions: HYDROcodone/APAP 5-325 [[place] 5-325 mg TAB] 1 each PO Q4H PRN #15 tablet PRN Reason: Pain, Moderate (4-6) Pantoprazole [Protonix TAB] 40 mg PO BID 30 Days tablet
[2018-11-13] MEDS: PROTONIX PO SCH ×2 (10:00→21:59)
--- NOTE | 2018-11-13 10:52 | Gastroenterology Consultation ---
<MARIIA DARLING - Last Filed: 11/13/18 11:10> History of Present Illness - Reason for Consult Consult date: 11/13/18 abdominal pain, intractable nausea Requesting physician: CHAZ ZARAGOZA - History of Present Illness Patient is a 48 y/o female with PMH of anemia with menorrhagia from large fibroids who presented to ED with c/o CP with associated epigastric pain and nausea to which GI has been consulted. Pain is described as a squeezing sensation and radiates from abdomen to her chest, shoulder, back, and left arm. Symptoms are worse with PO intake. Denies fever, wt loss, SOB, signs of bleeding, or LGI symptom. Took Tums at home for symptoms w/o relief. Was recently taking antibiotics from a dentist, with associated nausea. Takes I buprofen occasionally (3x/month on average). Had 1 episode of dysphagia to solids 1 month ago due to not chewing her food well, but has had no other difficulty swallowing since that time. No odynophagia. Never been treated for GERD in the past. No hx of PUD or prior EGD. Past History Past Medical History: other (anemia 2/2 large fibroids) Past Surgical History: , hysterectomy (partial?) Social history: denies: smoking, alcohol abuse Family history: CAD, hypertension, other (breast cancer) Medications and Allergies Allergies Allergy/AdvReac Type Severity Reaction Status Date / Time No Known Allergies Allergy Verified 11/11/18 07:34 Home Medications Medication Instructions Recorded Confirmed Last Taken Type Acetaminophen [Acetaminophen TAB] 325 mg PO Q6H PRN #15 tablet 11/13/18 Unknown Rx HYDROcodone/APAP 5-325 [[place] 1 each PO Q4H PRN #15 tablet 11/13/18 Unknown Rx 5-325 mg TAB] Pantoprazole [Protonix TAB] 40 mg PO BID 30 Days tablet 11/13/18 Unknown Rx Active Meds: Active Medications Acetaminophen (Tylenol) 650 mg PO Q6H PRN PRN Reason: Non Cardiac Pain or Temp>100.5 Last Admin: 11/11/18 19:40 Dose: 650 mg Documented by: Acetaminophen/Hydrocodone Bitart ([place] 5/325) 1 each PO Q4H PRN PRN Reason: Pain, Moderate (4-6) Last Admin: 11/12/18 21:51 Dose: 1 each Documented by: Heparin Sodium (Porcine) (Heparin) 5,000 unit SUB-Q Q12HR [facility] Morphine Sulfate (Morphine) 2 mg IV Q4H PRN PRN Reason: Pain , Severe (7-10) Last Admin: 11/11/18 23:06 Dose: 2 mg Documented by: Ondansetron HCl (Zofran) 4 mg IV Q4H PRN PRN Reason: Nausea And Vomiting Pantoprazole Sodium (Protonix) 40 mg PO BID [facility] Last Admin: 11/12/18 21:51 Dose: 40 mg Documented by: Zolpidem Tartrate (Ambien) 5 mg PO QHS PRN PRN Reason: Sleep medications reviewed/updated as required Review of Systems - Review of Systems All systems: negative Cardiovascular: chest pain Gastrointestinal: abdominal pain (epigastric), nausea Exam - Constitutional Vital Signs: Temp Pulse Resp BP Pulse Ox 97.4 F L 66 20 125/75 100 11/13/18 04:56 11/13/18 04:56 11/13/18 04:56 11/13/18 04:56 11/13/18 04:56 General appearance: no acute distress, obese - EENT Eyes: PERRL, EOM intact ENT: hearing intact - Respiratory Respiratory: bilateral: CTA - Cardiovascular Rhythm: regular - Gastrointestinal General gastrointestinal: Present: soft, tender (slight TTP in epigastric area), non-distended, normal bowel sounds - Neurologic Neurological: alert and oriented x3 - Labs CBC & Chem 7: 11/13/18 05:11 11/13/18 05:11 Lab Results: Laboratory Results - last 24 hr 11/13/18 11/13/18 05:11 05:11 WBC 4.5 RBC 4.09 Hgb 12.4 Hct 36.3 MCV 89 MCH 30 MCHC 34 RDW 13.8 Plt Count 312 Sodium 139 Potassium 4.1 Chloride 105.2 Carbon Dioxide 24 Anion Gap 14 BUN 12 Creatinine 0.8 Estimated GFR > 60 BUN/Creatinine Ratio 15 Glucose 109 H Calcium 8.8 Lipase 24 Assessment and Plan 1.epigastric pain 2.nausea -afebrile -WBC, H/H, and lipase WNL -etiology unclear-possible peptic vs GB vs other -will order hepatic panel and abd U/S -consider EGD based on clinical course once cleared by cardiology (stress test pending for today) -continue PPI -continue supportive care -will follow 3.CP -CXR negative -troponin negative -stress test today <TUAN MOSES - Last Filed: 11/13/18 15:54> Medications and Allergies Active Meds: Active Medications Acetaminophen (Tylenol) 650 mg PO Q6H PRN PRN Reason: Non Cardiac Pain or Temp>100.5 Last Admin: 11/11/18 19:40 Dose: 650 mg Documented by: Acetaminophen/Hydrocodone Bitart ([place] 5/325) 1 each PO Q4H PRN PRN Reason: Pain, Moderate (4-6) Last Admin: 11/12/18 21:51 Dose: 1 each Documented by: Heparin Sodium (Porcine) (Heparin) 5,000 unit SUB-Q Q12HR [facility] Morphine Sulfate (Morphine) 2 mg IV Q4H PRN PRN Reason: Pain , Severe (7-10) Last Admin: 11/11/18 23:06 Dose: 2 mg Documented by: Ondansetron HCl (Zofran) 4 mg IV Q4H PRN PRN Reason: Nausea And Vomiting Pantoprazole Sodium (Protonix) 40 mg PO BID [facility] Last Admin: 11/13/18 10:00 Dose: Not Given Documented by: Zolpidem Tartrate (Ambien) 5 mg PO QHS PRN PRN Reason: Sleep Exam - Constitutional Vital Signs: Temp Pulse Resp BP Pulse Ox 97.4 F L 66 20 118/67 100 11/13/18 04:56 11/13/18 04:56 11/13/18 04:56 11/13/18 11:19 11/13/18 04:56 - Labs CBC & Chem 7: 11/13/18 05:11 11/13/18 05:11 Lab Results: Laboratory Results - last 24 hr 11/13/18 11/13/18 11/13/18 05:11 05:11 05:11 WBC 4.5 RBC 4.09 Hgb 12.4 Hct 36.3 MCV 89 MCH 30 MCHC 34 RDW 13.8 Plt Count 312 Sodium 139 Potassium 4.1 Chloride 105.2 Carbon Dioxide 24 Anion Gap 14 BUN 12 Creatinine 0.8 Estimated GFR > 60 BUN/Creatinine Ratio 15 Glucose 109 H Calcium 8.8 Total Bilirubin 0.30 Direct Bilirubin < 0.2 Indirect Bilirubin 0.1 AST 12 ALT 8 Alkaline Phosphatase 43 Total Protein 6.6 Albumin 3.5 L Albumin/Globulin Ratio 1.1 Lipase 24 Assessment and Plan Pt has pressure-like substernal CP x 1 wk, constant, with no clear exacerbants. Symptoms started within hours of an 800 mg ibuprofen and an abx for tooth pain. Stress test negative. U/S and LFTs negative. No prior similar symptoms. No clear panic symptoms. Will do EGD to exclude PUD. If negative, may consider HIDA with CCK.
[2018-11-13 13:19] LABS: Alanine Aminotransferase 8 units/L (7-56); Albumin 3.5 g/dL (3.9-5)
[2018-11-13 13:20] LABS: Bilirubin,Direct < 0.2 mg/dL (0-0.2)
--- NOTE | 2018-11-13 13:29 | Ultrasound Report ---
ULTRASOUND ABDOMEN COMPLETE: TECHNIQUE: Transabdominal ultrasound with color Doppler interrogation. HISTORY: Abdominal pain, nausea. COMPARISON: none. FINDINGS: LIVER: Normal. BILIARY SYSTEM: Normal. PANCREAS: Normal. SPLEEN: Normal. KIDNEYS: Normal. AORTA/IVC: Normal. ASCITES: None. IMPRESSION: Unremarkable exam.
--- NOTE | 2018-11-13 16:58 | Cat Scan Report ---
PROCEDURE: CT HEAD/BRAIN WO CON TECHNIQUE: Spiral CT imaging of brain was obtained without IV contrast. HISTORY: headaches COMPARISONS: None FINDINGS: Brain: Brain density appears normal. No evidence of intracranial hemorrhage. No parenchymal hemorr lilia, mass lesions or mass effect are seen. No abnormal extra-axial fluid collects or masses are see n. Nonspecific minimal mineralization of the left basal ganglia visualized. Ventricles: Ventricles are normal size and are midline. Bone Windows: No evidence of skull fracture. Paranasal sinuses: Visualized portions are clear.. Mastoid air cells: Clear. IMPRESSION: Negative exam. This document is electronically signed by Daniel Chavez MD., November 13 2018 04:56:55 PM ET
[2018-11-13] MEDS: NORCO 5/325 PO PRN (21:59)
--- NOTE | 2018-11-13 23:51 | Treadmill Report ---
SINGLE ISOTOPE DUAL STUDY MYOCARDIAL PERFUSION SCAN REPORT AGE: 48 SEX: Female. REFERRING PHYSICIAN: Antonio Ruffin MD, hospitalist. Reviewed and dictated by Dr. Lynne Martínez. DESCRIPTION OF PROCEDURE: The patient received 10 mCi of technetium 99m Myoview intravenously under resting conditions. Resting myocardial perfusion scan was done. Subsequently, the patient underwent exercise stress test as per the standard Jaime protocol. The peak heart rate was 170 with (98% of predicted maximum heart rate) and peak systolic blood pressure was 172/79 mmHg. During exercise stress test, the patient received 28 mCi of technetium 99m Myoview intravenously. After 30-60 minutes, post stress images were done. Computerized reconstruction of the images were performed for analysis. The post-stress images revealed uniform distribution of the radiopharmaceutical in the left ventricular myocardium. Cinematic display of the gated study did not reveal any wall motion abnormality. The left ventricular ejection fraction was 68%. The resting images were normal. Of note, the EKG at the peak of exercise revealed evidence of possible inferolateral ischemia and the patient had marked chest pains, which gradually came down. CONCLUSION: 1. Good exercise tolerance. 2. Possible inferolateral ischemia in EKG. 3. Moderate chest pain at the peak of exercise, which gradually came down. 4. Normal resting and stress myocardial perfusion scan images. 5. No wall motion abnormality. 6. Normal left ventricular ejection fraction of 68%. JOB# [id number] [facility] MTDD
--- NOTE | 2018-11-14 08:18 | Progress Note ---
Assessment and Plan Assessment and plan: Patient is a 48 yo woman with a history of anemia with menorrhagia from large fibroids and GERD who present to [facility] ED with severe intermittent nonradiating squeezing substernal chest pains without aggravating or relieving factors that started 1 week ago. She decided to come to the ED last night because CP started to radiate with numbling and tingling down left arm and lasted longer, 45 minutes. She has been taking ibuprofen for the fibroid pains. She was also took unspecified abx from a Dentist, made her nauseated. She took Tums without relief. --Atypical Chest painl: stress test negative, EF 68% Continue current management --GERD related CP suspected: treat with PPi GI evaluation noted no appreciated, follow recommendations Scheduled for EGD today, --H/o Anemia with fibroids, stable monitor closely Transfuse as needed --Headaches: pain control, CT head negative --DVT ppx; sq heparin and Protonix Disposition ;Follow EGD and GI recommendations . If EGD is negative and patient is stable ,may discharge today or tomorrow Plan of care reviewed with the patient and her nurse History Interval history: Patient seen and examined medical records reviewed Stress test was negative for reversible ischemia Patient scheduled for discharge today Patient feels better no new complaints Vital signs noted Hospitalist Physical - Constitutional Vitals: Temp Pulse Resp BP Pulse Ox 98.0 F 69 16 101/51 100 11/14/18 04:31 11/14/18 04:31 11/14/18 04:31 11/14/18 04:31 11/14/18 04:31 General appearance: Present: no acute distress, well-nourished, obese - EENT Eyes: Present: PERRL, EOM intact - Neck Neck: Present: supple, normal ROM - Respiratory Respiratory effort: normal Respiratory: bilateral: diminished, negative: rales, rhonchi, wheezing - Cardiovascular Rhythm: regular Heart Sounds: Present: S1 & S2 - Extremities Extremities: no ischemia, No edema - Abdominal General gastrointestinal: soft, non-tender, non-distended, normal bowel sounds - Integumentary Integumentary: Present: clear, warm - Psychiatric Psychiatric: appropriate mood/affect, cooperative - Neurologic Neurologic: CNII-XII intact, moves all extremities Results - Labs CBC & Chem 7: 11/13/18 05:11 11/13/18 05:11 Labs: Laboratory Last Values WBC 4.5 K/mm3 (4.5-11.0) 11/13/18 05:11 RBC 4.09 M/mm3 (3.65-5.03) 11/13/18 05:11 Hgb 12.4 gm/dl (10.1-14.3) 11/13/18 05:11 Hct 36.3 % (30.3-42.9) 11/13/18 05:11 MCV 89 fl (79-97) 11/13/18 05:11 MCH 30 pg (28-32) 11/13/18 05:11 MCHC 34 % (30-34) 11/13/18 05:11 RDW 13.8 % (13.2-15.2) 11/13/18 05:11 Plt Count 312 K/mm3 (140-440) 11/13/18 05:11 Lymph % (Auto) 42.5 % (13.4-35.0) H 11/11/18 07:49 [place] % (Auto) 13.6 % (0.0-7.3) H 11/11/18 07:49 Eos % (Auto) 1.5 % (0.0-4.3) 11/11/18 07:49 Baso % (Auto) 0.8 % (0.0-1.8) 11/11/18 07:49 Lymph # 2.2 K/mm3 (1.2-5.4) 11/11/18 07:49 [place] # 0.7 K/mm3 (0.0-0.8) 11/11/18 07:49 Eos # 0.1 K/mm3 (0.0-0.4) 11/11/18 07:49 Baso # 0.0 K/mm3 (0.0-0.1) 11/11/18 07:49 Seg Neutrophils % 41.6 % (40.0-70.0) 11/11/18 07:49 Seg Neutrophils # 2.2 K/mm3 (1.8-7.7) 11/11/18 07:49 Sodium 139 mmol/L (137-145) 11/13/18 05:11 Potassium 4.1 mmol/L (3.6-5.0) 11/13/18 05:11 Chloride 105.2 mmol/L (98-107) 11/13/18 05:11 Carbon Dioxide 24 mmol/L (22-30) 11/13/18 05:11 Anion Gap 14 mmol/L 11/13/18 05:11 BUN 12 mg/dL (7-17) 11/13/18 05:11 Creatinine 0.8 mg/dL (0.7-1.2) 11/13/18 05:11 Estimated GFR > 60 ml/min 11/13/18 05:11 BUN/Creatinine Ratio 15 % 11/13/18 05:11 Glucose 109 mg/dL (65-100) H 11/13/18 05:11 Calcium 8.8 mg/dL (8.4-10.2) 11/13/18 05:11 Total Bilirubin 0.30 mg/dL (0.1-1.2) 11/13/18 05:11 Direct Bilirubin < 0.2 mg/dL (0-0.2) 11/13/18 05:11 Indirect Bilirubin 0.1 mg/dL 11/13/18 05:11 AST 12 units/L (5-40) 11/13/18 05:11 ALT 8 units/L (7-56) 11/13/18 05:11 Alkaline Phosphatase 43 units/L (35-129) 11/13/18 05:11 Troponin T < 0.010 ng/mL (0.00-0.029) 11/11/18 13:26 Total Protein 6.6 g/dL (6.3-8.2) 11/13/18 05:11 Albumin 3.5 g/dL (3.9-5) L 11/13/18 05:11 Albumin/Globulin Ratio 1.1 % 11/13/18 05:11 Triglycerides 76 mg/dL (2-149) 11/12/18 07:38 Cholesterol 144 mg/dL (50-199) 11/12/18 07:38 LDL Cholesterol Direct 104 mg/dL (50-130) 11/12/18 07:38 HDL Cholesterol 38 mg/dL (40-59) L 11/12/18 07:38 Cholesterol/HDL Ratio 3.78 % 11/12/18 07:38 Lipase 24 units/L (13-60) 11/13/18 05:11 TSH 2.580 mlU/mL (0.270-4.200) 11/12/18 07:38 Active Medications - Current Medications Current Medications: Generic Name Dose Route Start Last Admin Trade Name Freq PRN Reason Stop Dose Admin Acetaminophen 650 mg 11/11/18 13:45 11/11/18 19:40 Tylenol PO 650 mg Q6H PRN Administration Non Cardiac Pain or Temp>100.5 Acetaminophen/Hydrocodone Bitart 1 each 11/11/18 13:45 11/13/18 21:59 [place] 5/325 PO 1 each Q4H PRN Administration Pain, Moderate (4-6) Heparin Sodium (Porcine) 5,000 unit 11/14/18 22:00 Heparin SUB-Q Q12HR [facility] Sodium Chloride 1,000 mls @ 50 mls/hr 11/14/18 08:00 Nacl 0.9% 1000 Ml IV DIRECT [facility] Morphine Sulfate 2 mg 11/11/18 13:45 11/11/18 23:06 Morphine IV 2 mg Q4H PRN Administration Pain , Severe (7-10) Ondansetron HCl 4 mg 11/11/18 13:45 Zofran IV Q4H PRN Nausea And Vomiting Pantoprazole Sodium 40 mg 11/12/18 13:00 11/13/18 21:59 Protonix PO 40 mg BID [facility] Administration Zolpidem Tartrate 5 mg 11/11/18 22:00 Ambien PO QHS PRN Sleep
[2018-11-14] MEDS: PROTONIX PO SCH ×2 (10:00→21:38)
[2018-11-14] MEDS: NACL 0.9% 1000 ML 1,000 ML IV SCH ×2 (11:37→19:57)
--- NOTE | 2018-11-14 11:42 | Anesthesia Consultation ---
Anesthesia Consult and Med Hx Date of service: 11/14/18 - Airway Anesthetic Teeth Evaluation: Good ROM Head & Neck: Adequate Mental/Hyoid Distance: Adequate Mallampati Class: Class II Intubation Access Assessment: Probably Good - Pulmonary Exam CTA: Yes - Cardiac Exam Cardiac Exam: No Murmur - Pre-Operative Health Status ASA Pre-Surgery Classification: ASA2 Proposed Anesthetic Plan: MAC - Pulmonary Hx Asthma: No COPD: No Hx Pneumonia: Yes - Endocrine Hx End Stage Renal Disease: No - Hematic Hx Anemia: Yes - Other Systems Hx Obesity: Yes
--- NOTE | 2018-11-14 11:42 | Anesthesia Day of Surgery ---
Anesthesia Day of Surgery - Day of Surgery Patient Examined: Yes Patient H&P Reviewed: Yes Patient is NPO: Yes Beta Blockers: No
[2018-11-14] MEDS ORDERED: DIPRIVAN 10 MG/ML IV ONE (12:21)
[2018-11-14] MEDS ORDERED: VERSED ONE (12:53)
--- NOTE | 2018-11-14 13:13 | Post Operative Note ---
Pre-op diagnosis: Chest/epigastric pain Post-op diagnosis: other (Erosive antritis) Findings: 1. Moderately erosive, focal, antritis, biopsied. 2. Otherwise normal EGD. Procedure: EGD with biopsy Anesthesia: MAC Surgeon: TUAN MOSES Estimated blood loss: minimal Pathology: list (1. Antrum) Specimen disposition: to lab Condition: stable Disposition: floor (May be functional. Will get HIDA with CCK. Consider stopping morphine.)
--- NOTE | 2018-11-14 14:41 | Operative Report ---
UPPER ENDOSCOPY REPORT PROCEDURE: Upper endoscopy with biopsy. PREOPERATIVE DIAGNOSES: Chest pain and epigastric discomfort. POSTOPERATIVE DIAGNOSES: Moderately erosive gastritis in the antrum. SEDATION: MAC by Anesthesia. HISTORY: The patient is a 48-year-old woman who presents with heavy chest pressure. Cardiac evaluation was negative. Symptoms are ongoing. Ultrasound was negative and she is on PPIs. Procedure, indications, risks, and benefits were explained and consent was obtained. The patient was placed in left lateral decubitus position and sedated. Pigeonly video upper endoscope was passed through the mouth and oropharynx into the descending duodenum. Scope was then gradually withdrawn with close inspection of mucosa. FINDINGS: 1. Normal appearing esophagus with sharp Z-line located at 37 cm from the incisors. 2. Focal gastritis with edema in the prepyloric region of the antrum with small erosion -- biopsied. 3. Remainder of gastric antrum, fundus, body, and cardia were normal appearing. 4. Normal appearing duodenal bulb and duodenum. The patient tolerated the procedure well without immediate complications. ESTIMATED BLOOD LOSS: Minimal. IMPRESSION: 1. Moderately erosive antritis -- biopsied. 2. Otherwise, normal upper endoscopy with no indication of etiology for chest pressure. PLAN: 1. Proceed with HIDA scan with CCK. 2. Consider management for functional disturbance with possible neuro modulators such as trazodone. JOB# [id number] [facility]
--- NOTE | 2018-11-14 17:34 | Event Note ---
Date: 11/14/18 Patient had EGD with biopsy Findings: 1. Moderately erosive, focal, antritis, biopsied. 2. Otherwise normal EGD. GI recommend HIDA with CCK. Morphine stopped Disposition; follow HIDA scan, GI evaluation If negative and patient is stable may be discharged home tomorrow
[2018-11-14] MEDS: NORCO 5/325 PO PRN (19:57)
[2018-11-14] MEDS: HEPARIN SUB-Q SCH (21:39)
[2018-11-15 06:38] LABS: Hematocrit 36.5 % (30.3-42.9); Hemoglobin 12.4 gm/dl (10.1-14.3); Mean Corpuscular HGB Conc 34 % (30-34); Mean Corpuscular Volume 90 fl (79-97); Platelet Count 308 K/mm3 (140-440); Red Blood Count 4.07 M/mm3 (3.65-5.03)
[2018-11-15 06:57] LABS: BUN/Creatinine Ratio 21; Blood Urea Nitrogen 17 mg/dL (7-17); Calcium 8.5 mg/dL (8.4-10.2); Hemolysis Index 7
[2018-11-15 09:45] LABS: Platelet Estimate Consistent w Auto; RBC Morphology Normal; Total Cells Counted 100
[2018-11-15] MEDS ORDERED: KINEVAC IV ONE ×2 (11:04→11:05)
[2018-11-15] MEDS ORDERED: PNEUMOVAX 23 IM ONE (12:00)
--- NOTE | 2018-11-15 13:00 | Nuclear Medicine Report ---
HIDA WITH CCK INDICATION: Epigastric, RUQ pain. COMPARISON: None similar. FINDINGS: Dynamic right upper quadrant imaging performed in the anterior projection over 60 minutes following uneventful intravenous administration of 5 mCi of Technetium 99m Choletec. Prompt and homogenous hepatic radiotracer uptake with subsequent washout seen with gallbladder activity noted conclusively at 40 minutes and bowel activity seen at 20 minutes. Subsequently, 1.74 mcg of cholecystokinin infused intravenously over a period of 3 minutes with patient's symptoms duplicated. The calculated ejection fraction is 28% (normal greater than 35%). CONCLUSION: Biliary dyskinesia with gallbladder ejection fraction of 28% and patient's symptoms reproduced following CCK, as described. Please correlate. Thank you for the opportunity to participate in this patient's care.
[2018-11-15] MEDS: PROTONIX PO SCH ×2 (13:08→21:21)
[2018-11-15] MEDS: HEPARIN SUB-Q SCH ×2 (13:10→21:22)
--- NOTE | 2018-11-15 14:36 | Gastroenterology Progress Note ---
<MARIIA DARLING - Last Filed: 11/15/18 14:36> Assessment and Plan 1.epigastric pain 2.nausea 3.atypical CP (stress test, CXR, troponin negative) -afebrile -WBC, H/H, and lipase WNL -abd U/S negative -s/p EGD that showed moderately erosive focal antritis -bx negative -HIDA scan today with findings c/w biliary dyskinesia (EF 28%; pain reproduced with CCK) -recommend surgery consult for possible cholecystectomy -continue PPI and supportive care -further management per surgery -GI will sign off, please call if needed Subjective Date of service: 11/15/18 Principal diagnosis: abdominal pain, intractable nausea Interval history: No acute distress. Reports continued chest/epigastric pain. Objective - Constitutional Vitals: Temp Pulse Resp BP Pulse Ox 97.6 F 67 18 129/63 98 11/15/18 11:56 11/15/18 11:56 11/15/18 11:56 11/15/18 11:56 11/15/18 11:56 General appearance: no acute distress, obese - Respiratory Respiratory: bilateral: CTA - Cardiovascular Rhythm: regular - Gastrointestinal General gastrointestinal: Present: soft, non-tender, non-distended, normal bowel sounds - Neurologic Neurological: alert and oriented x3 - Labs CBC & Chem 7: 11/15/18 05:35 11/15/18 05:35 Labs: Laboratory Results - last 24 hr 11/15/18 11/15/18 05:35 05:35 WBC 4.7 RBC 4.07 Hgb 12.4 Hct 36.5 MCV 90 MCH 30 MCHC 34 RDW 14.0 Plt Count 308 Add Manual Diff Complete Total Counted 100 Seg Neutrophils % Disaster Recovery Analyst Seg Neuts % (Manual) 41.0 Band Neutrophils % 0 Lymphocytes % (Manual) 47.0 H Reactive Lymphs % (Man) 0 Monocytes % (Manual) 10.0 H Eosinophils % (Manual) 1.0 Basophils % (Manual) 1.0 Metamyelocytes % 0 Myelocytes % 0 Promyelocytes % 0 Blast Cells % 0 Nucleated RBC % Not Reportable Seg Neutrophils # Man 1.9 Band Neutrophils # 0.0 Lymphocytes # (Manual) 2.2 Abs React Lymphs (Man) 0.0 Monocytes # (Manual) 0.5 Eosinophils # (Manual) 0.0 Basophils # (Manual) 0.0 Metamyelocytes # 0.0 Myelocytes # 0.0 Promyelocytes # 0.0 Blast Cells # 0.0 WBC Morphology Not Reportable Hypersegmented Neuts Not Reportable Hyposegmented Neuts Not Reportable Hypogranular Neuts Not Reportable Smudge Cells Not Reportable Toxic Granulation Not Reportable Toxic Vacuolation Not Reportable Dohle Bodies Not Reportable Pelger-Huet Anomaly Not Reportable [place]uki Rods Not Reportable Platelet Estimate Consistent w auto Clumped Platelets Not Reportable Plt Clumps, EDTA Not Reportable Large Platelets Not Reportable Giant Platelets Not Reportable Platelet Satelliting Not Reportable Plt Morphology Comment Not Reportable RBC Morphology Normal Dimorphic RBCs Not Reportable Polychromasia Not Reportable Hypochromasia Not Reportable Poikilocytosis Not Reportable Anisocytosis Not Reportable Microcytosis Not Reportable Macrocytosis Not Reportable Spherocytes Not Reportable Pappenheimer Bodies Not Reportable Sickle Cells Not Reportable Target Cells Not Reportable Tear Drop Cells Not Reportable Ovalocytes Not Reportable Helmet Cells Not Reportable [place] Bodies Not Reportable [place] Rings Not Reportable [place]ess[place] Cells Not Reportable Bite Cells Not Reportable Crenated Cell Not Reportable Elliptocytes Not Reportable Acanthocytes (Spur) Not Reportable Rouleaux Not Reportable Hemoglobin C Crystals Not Reportable Schistocytes Not Reportable Malaria parasites Not Reportable [place] Bodies Not Reportable Hem Pathologist Commnt No Sodium 138 Potassium 4.2 Chloride 106.5 Carbon Dioxide 24 Anion Gap 12 BUN 17 Creatinine 0.8 Estimated GFR > 60 BUN/Creatinine Ratio 21 Glucose 104 H Calcium 8.5 <TUAN MOSES R - Last Filed: 11/15/18 16:16> Assessment and Plan Biliary dyskinesia confirmed, with symptoms reproduced. Plan as above. Objective - Constitutional Vitals: Temp Pulse Resp BP Pulse Ox 97.6 F 67 18 129/63 98 11/15/18 11:56 11/15/18 11:56 11/15/18 11:56 11/15/18 11:56 11/15/18 11:56 - Labs CBC & Chem 7: 11/15/18 05:35 11/15/18 05:35 Labs: Laboratory Results - last 24 hr 11/15/18 11/15/18 05:35 05:35 WBC 4.7 RBC 4.07 Hgb 12.4 Hct 36.5 MCV 90 MCH 30 MCHC 34 RDW 14.0 Plt Count 308 Add Manual Diff Complete Total Counted 100 Seg Neutrophils % Disaster Recovery Analyst Seg Neuts % (Manual) 41.0 Band Neutrophils % 0 Lymphocytes % (Manual) 47.0 H Reactive Lymphs % (Man) 0 Monocytes % (Manual) 10.0 H Eosinophils % (Manual) 1.0 Basophils % (Manual) 1.0 Metamyelocytes % 0 Myelocytes % 0 Promyelocytes % 0 Blast Cells % 0 Nucleated RBC % Not Reportable Seg Neutrophils # Man 1.9 Band Neutrophils # 0.0 Lymphocytes # (Manual) 2.2 Abs React Lymphs (Man) 0.0 Monocytes # (Manual) 0.5 Eosinophils # (Manual) 0.0 Basophils # (Manual) 0.0 Metamyelocytes # 0.0 Myelocytes # 0.0 Promyelocytes # 0.0 Blast Cells # 0.0 WBC Morphology Not Reportable Hypersegmented Neuts Not Reportable Hyposegmented Neuts Not Reportable Hypogranular Neuts Not Reportable Smudge Cells Not Reportable Toxic Granulation Not Reportable Toxic Vacuolation Not Reportable Dohle Bodies Not Reportable Pelger-Huet Anomaly Not Reportable Yuki Rods Not Reportable Platelet Estimate Consistent w auto Clumped Platelets Not Reportable Plt Clumps, EDTA Not Reportable Large Platelets Not Reportable Giant Platelets Not Reportable Platelet Satelliting Not Reportable Plt Morphology Comment Not Reportable RBC Morphology Normal Dimorphic RBCs Not Reportable Polychromasia Not Reportable Hypochromasia Not Reportable Poikilocytosis Not Reportable Anisocytosis Not Reportable Microcytosis Not Reportable Macrocytosis Not Reportable Spherocytes Not Reportable Pappenheimer Bodies Not Reportable Sickle Cells Not Reportable Target Cells Not Reportable Tear Drop Cells Not Reportable Ovalocytes Not Reportable Helmet Cells Not Reportable [place] Bodies Not Reportable [place] Rings Not Reportable Aless[place] Cells Not Reportable Bite Cells Not Reportable Crenated Cell Not Reportable Elliptocytes Not Reportable Acanthocytes (Spur) Not Reportable Rouleaux Not Reportable Hemoglobin C Crystals Not Reportable Schistocytes Not Reportable Malaria parasites Not Reportable [place] Bodies Not Reportable Hem Pathologist Commnt No Sodium 138 Potassium 4.2 Chloride 106.5 Carbon Dioxide 24 Anion Gap 12 BUN 17 Creatinine 0.8 Estimated GFR > 60 BUN/Creatinine Ratio 21 Glucose 104 H Calcium 8.5
--- NOTE | 2018-11-15 16:50 | Progress Note ---
Assessment and Plan Assessment and plan: Patient is a 48 yo woman with a history of anemia with menorrhagia from large fibroids and GERD who present to [facility] ED with severe intermittent nonradiating squeezing substernal chest pains without aggravating or relieving factors that started 1 week ago. She decided to come to the ED last night because CP started to radiate with numbling and tingling down left arm and lasted longer, 45 minutes. She has been taking ibuprofen for the fibroid pains. She was also took unspecified abx from a Dentist, made her nauseated. She took Tums without relief. Chest pains appears atypical: stress test on Tuesday, stop Motrin advised, treat with pPi GERD related CP suspected: treat with PPi and consulted GI H/o Anemia with fibroids, stable monitor closely Headaches: pain control, CT head DVT ppx; sq heparin Stress test negative, EGD showed Erosive focal gastritis/antritis), HIDA scan 28% EF gallbladder with reproducible symptoms Disposition: continue inpatient care, GS for gallbladder dyskinesia History Interval history: Patient was seen and examined. Follow-up on current diagnosis of CP/epigastric pains and nausea, still present. Overnight uneventful. Patient denies any shortness breath. Imaging, nursing note, chart, labs and old chart reviewed. Discussed with patient. Also moderate pain control. Hospitalist Physical - Physical exam Narrative exam: GEN: WDWN, NAD, Awake, Alert, Orientated HEENT: NCAT, EOMI, PERRL, OP Clear NECK: supple, no adenopathy, no thyromegaly, no JVD CVS/HEART: RRR, normal S1S2, pulses present bilaterally CHEST/LUNGS: CTA B, Symmetrical chest expansion, good air entry bilaterally GI/Abdomen: soft, NTND, good bowel sounds, no guarding or rebound /Bladder: no suprapubic tenderness, no CVA or paraspinal tenderness EXT/Skin: no c/c/e, no obvious rash MSK: FROM x 4 Neuro: CN 2-12 grossly intact, no new focal deficits Psych: calm - Constitutional Vitals: Temp Pulse Resp BP Pulse Ox 97.6 F 67 18 129/63 98 11/15/18 11:56 11/15/18 11:56 11/15/18 11:56 11/15/18 11:56 11/15/18 11:56 General appearance: Present: no acute distress, well-nourished, obese Results - Labs CBC & Chem 7: 11/15/18 05:35 11/15/18 05:35 Labs: Laboratory Last Values WBC 4.7 K/mm3 (4.5-11.0) 11/15/18 05:35 RBC 4.07 M/mm3 (3.65-5.03) 11/15/18 05:35 Hgb 12.4 gm/dl (10.1-14.3) 11/15/18 05:35 Hct 36.5 % (30.3-42.9) 11/15/18 05:35 MCV 90 fl (79-97) 11/15/18 05:35 MCH 30 pg (28-32) 11/15/18 05:35 MCHC 34 % (30-34) 11/15/18 05:35 RDW 14.0 % (13.2-15.2) 11/15/18 05:35 Plt Count 308 K/mm3 (140-440) 11/15/18 05:35 Lymph % (Auto) 42.5 % (13.4-35.0) H 11/11/18 07:49 [place] % (Auto) 13.6 % (0.0-7.3) H 11/11/18 07:49 Eos % (Auto) 1.5 % (0.0-4.3) 11/11/18 07:49 Baso % (Auto) 0.8 % (0.0-1.8) 11/11/18 07:49 Lymph # 2.2 K/mm3 (1.2-5.4) 11/11/18 07:49 [place] # 0.7 K/mm3 (0.0-0.8) 11/11/18 07:49 Eos # 0.1 K/mm3 (0.0-0.4) 11/11/18 07:49 Baso # 0.0 K/mm3 (0.0-0.1) 11/11/18 07:49 Add Manual Diff Complete 11/15/18 05:35 Total Counted 100 11/15/18 05:35 Seg Neutrophils % Tack Cleaner 11/15/18 05:35 Seg Neuts % (Manual) 41.0 % (40.0-70.0) 11/15/18 05:35 Band Neutrophils % 0 % 11/15/18 05:35 Lymphocytes % (Manual) 47.0 % (13.4-35.0) H 11/15/18 05:35 Reactive Lymphs % (Man) 0 % 11/15/18 05:35 Monocytes % (Manual) 10.0 % (0.0-7.3) H 11/15/18 05:35 Eosinophils % (Manual) 1.0 % (0.0-4.3) 11/15/18 05:35 Basophils % (Manual) 1.0 % (0.0-1.8) 11/15/18 05:35 Metamyelocytes % 0 % 11/15/18 05:35 Myelocytes % 0 % 11/15/18 05:35 Promyelocytes % 0 % 11/15/18 05:35 Blast Cells % 0 % 11/15/18 05:35 Nucleated RBC % Not Reportable 11/15/18 05:35 Seg Neutrophils # 2.2 K/mm3 (1.8-7.7) 11/11/18 07:49 Seg Neutrophils # Man 1.9 K/mm3 (1.8-7.7) 11/15/18 05:35 Band Neutrophils # 0.0 K/mm3 11/15/18 05:35 Lymphocytes # (Manual) 2.2 K/mm3 (1.2-5.4) 11/15/18 05:35 Abs React Lymphs (Man) 0.0 K/mm3 11/15/18 05:35 Monocytes # (Manual) 0.5 K/mm3 (0.0-0.8) 11/15/18 05:35 Eosinophils # (Manual) 0.0 K/mm3 (0.0-0.4) 11/15/18 05:35 Basophils # (Manual) 0.0 K/mm3 (0.0-0.1) 11/15/18 05:35 Metamyelocytes # 0.0 K/mm3 11/15/18 05:35 Myelocytes # 0.0 K/mm3 11/15/18 05:35 Promyelocytes # 0.0 K/mm3 11/15/18 05:35 Blast Cells # 0.0 K/mm3 11/15/18 05:35 WBC Morphology Not Reportable 11/15/18 05:35 Hypersegmented Neuts Not Reportable 11/15/18 05:35 Hyposegmented Neuts Not Reportable 11/15/18 05:35 Hypogranular Neuts Not Reportable 11/15/18 05:35 Smudge Cells Not Reportable 11/15/18 05:35 Toxic Granulation Not Reportable 11/15/18 05:35 Toxic Vacuolation Not Reportable 11/15/18 05:35 Dohle Bodies Not Reportable 11/15/18 05:35 Pelger-Huet Anomaly Not Reportable 11/15/18 05:35 Yuki Rods Not Reportable 11/15/18 05:35 Platelet Estimate Consistent w auto 11/15/18 05:35 Clumped Platelets Not Reportable 11/15/18 05:35 Plt Clumps, EDTA Not Reportable 11/15/18 05:35 Large Platelets Not Reportable 11/15/18 05:35 Giant Platelets Not Reportable 11/15/18 05:35 Platelet Satelliting Not Reportable 11/15/18 05:35 Plt Morphology Comment Not Reportable 11/15/18 05:35 RBC Morphology Normal 11/15/18 05:35 Dimorphic RBCs Not Reportable 11/15/18 05:35 Polychromasia Not Reportable 11/15/18 05:35 Hypochromasia Not Reportable 11/15/18 05:35 Poikilocytosis Not Reportable 11/15/18 05:35 Anisocytosis Not Reportable 11/15/18 05:35 Microcytosis Not Reportable 11/15/18 05:35 Macrocytosis Not Reportable 11/15/18 05:35 Spherocytes Not Reportable 11/15/18 05:35 Pappenheimer Bodies Not Reportable 11/15/18 05:35 Sickle Cells Not Reportable 11/15/18 05:35 Target Cells Not Reportable 11/15/18 05:35 Tear Drop Cells Not Reportable 11/15/18 05:35 Ovalocytes Not Reportable 11/15/18 05:35 Helmet Cells Not Reportable 11/15/18 05:35 [place] Bodies Not Reportable 11/15/18 05:35 [place] Rings Not Reportable 11/15/18 05:35 Alessia Cells Not Reportable 11/15/18 05:35 Bite Cells Not Reportable 11/15/18 05:35 Crenated Cell Not Reportable 11/15/18 05:35 Elliptocytes Not Reportable 11/15/18 05:35 Acanthocytes (Spur) Not Reportable 11/15/18 05:35 Rouleaux Not Reportable 11/15/18 05:35 Hemoglobin C Crystals Not Reportable 11/15/18 05:35 Schistocytes Not Reportable 11/15/18 05:35 Malaria parasites Not Reportable 11/15/18 05:35 [place] Bodies Not Reportable 11/15/18 05:35 Hem Pathologist Commnt No 11/15/18 05:35 Sodium 138 mmol/L (137-145) 11/15/18 05:35 Potassium 4.2 mmol/L (3.6-5.0) 11/15/18 05:35 Chloride 106.5 mmol/L (98-107) 11/15/18 05:35 Carbon Dioxide 24 mmol/L (22-30) 11/15/18 05:35 Anion Gap 12 mmol/L 11/15/18 05:35 BUN 17 mg/dL (7-17) 11/15/18 05:35 Creatinine 0.8 mg/dL (0.7-1.2) 11/15/18 05:35 Estimated GFR > 60 ml/min 11/15/18 05:35 BUN/Creatinine Ratio 21 % 11/15/18 05:35 Glucose 104 mg/dL (65-100) H 11/15/18 05:35 Calcium 8.5 mg/dL (8.4-10.2) 11/15/18 05:35 Total Bilirubin 0.30 mg/dL (0.1-1.2) 11/13/18 05:11 Direct Bilirubin < 0.2 mg/dL (0-0.2) 11/13/18 05:11 Indirect Bilirubin 0.1 mg/dL 11/13/18 05:11 AST 12 units/L (5-40) 11/13/18 05:11 ALT 8 units/L (7-56) 11/13/18 05:11 Alkaline Phosphatase 43 units/L (35-129) 11/13/18 05:11 Troponin T < 0.010 ng/mL (0.00-0.029) 11/11/18 13:26 Total Protein 6.6 g/dL (6.3-8.2) 11/13/18 05:11 Albumin 3.5 g/dL (3.9-5) L 11/13/18 05:11 Albumin/Globulin Ratio 1.1 % 11/13/18 05:11 Triglycerides 76 mg/dL (2-149) 11/12/18 07:38 Cholesterol 144 mg/dL (50-199) 11/12/18 07:38 LDL Cholesterol Direct 104 mg/dL (50-130) 11/12/18 07:38 HDL Cholesterol 38 mg/dL (40-59) L 11/12/18 07:38 Cholesterol/HDL Ratio 3.78 % 11/12/18 07:38 Lipase 24 units/L (13-60) 11/13/18 05:11 TSH 2.580 mlU/mL (0.270-4.200) 11/12/18 07:38 Active Medications - Current Medications Current Medications: Generic Name Dose Route Start Last Admin Trade Name Freq PRN Reason Stop Dose Admin Acetaminophen 650 mg 11/11/18 13:45 11/11/18 19:40 Tylenol PO 650 mg Q6H PRN Administration Non Cardiac Pain or Temp>100.5 Acetaminophen/Hydrocodone Bitart 1 each 11/11/18 13:45 11/14/18 19:57 [place] 5/325 PO 1 each Q4H PRN Administration Pain, Moderate (4-6) Heparin Sodium (Porcine) 5,000 unit 11/14/18 22:00 11/15/18 13:10 Heparin SUB-Q 5,000 unit Q12HR SCOOTER Administration Sodium Chloride 1,000 mls @ 50 mls/hr 11/14/18 08:00 11/14/18 19:57 Nacl 0.9% 1000 Ml IV 50 mls/hr DIRECT SCOOTER Administration Ondansetron HCl 4 mg 11/11/18 13:45 Zofran IV Q4H PRN Nausea And Vomiting Pantoprazole Sodium 40 mg 11/12/18 13:00 11/15/18 13:08 Protonix PO 40 mg BID SCOOTER Administration Zolpidem Tartrate 5 mg 11/11/18 22:00 11/14/18 23:59 Ambien PO 5 mg QHS PRN Administration Sleep
--- NOTE | 2018-11-15 17:13 | Consultation ---
History of Present Illness Consult date: 11/15/18 Reason for consult: abdominal pain Requesting physician: MARIIA DARLING Chief complaint: abdominal pain - History of present illness History of present illness: 48yo F presented to the ED with chest pain and left arm symptoms. Workup revealed probable gallbladder etiology. Pt had reproduction of symptoms during HIDA with CCK. In retrospect, pt does note nausea, bloating, discomfort when she eats. Gen surg was asked to see the patient for cholecystectomy consideration. Past History Past Medical History: other (anemia 2/2 large fibroids) Past Surgical History: (with unilateral salpingo-oophorectomy) Social history: denies: smoking, alcohol abuse Family history: CAD, hypertension, other (breast cancer) Medications and Allergies Allergies Allergy/AdvReac Type Severity Reaction Status Date / Time No Known Allergies Allergy Verified 11/11/18 07:34 Home Medications Medication Instructions Recorded Confirmed Last Taken Type Acetaminophen [Acetaminophen TAB] 325 mg PO Q6H PRN #15 tablet 11/13/18 Unknown Rx HYDROcodone/APAP 5-325 [[place] 1 each PO Q4H PRN #15 tablet 11/13/18 Unknown Rx 5-325 mg TAB] Pantoprazole [Protonix TAB] 40 mg PO BID 30 Days tablet 11/13/18 Unknown Rx Active Meds: Active Medications Acetaminophen (Tylenol) 650 mg PO Q6H PRN PRN Reason: Non Cardiac Pain or Temp>100.5 Last Admin: 11/11/18 19:40 Dose: 650 mg Documented by: Acetaminophen/Hydrocodone Bitart ([place] 5/325) 1 each PO Q4H PRN PRN Reason: Pain, Moderate (4-6) Last Admin: 11/14/18 19:57 Dose: 1 each Documented by: Heparin Sodium (Porcine) (Heparin) 5,000 unit SUB-Q Q12HR SCOOTER Last Admin: 11/15/18 13:10 Dose: 5,000 unit Documented by: Sodium Chloride (Nacl 0.9% 1000 Ml) 1,000 mls @ 50 mls/hr IV DIRECT SCOOTER Last Admin: 11/14/18 19:57 Dose: 50 mls/hr Documented by: Ondansetron HCl (Zofran) 4 mg IV Q4H PRN PRN Reason: Nausea And Vomiting Pantoprazole Sodium (Protonix) 40 mg PO BID SCOOTER Last Admin: 11/15/18 13:08 Dose: 40 mg Documented by: Zolpidem Tartrate (Ambien) 5 mg PO QHS PRN PRN Reason: Sleep Last Admin: 11/14/18 23:59 Dose: 5 mg Documented by: Review of Systems - Constitutional no fever, no chills, no chronic pain - Cardiovascular chest pain - Respiratory no shortness of breath - Gastrointestinal abdominal pain, nausea, change in bowel habits, dyspepsia/bloating, no vomiting, no hematemesis, no coffee ground emesis, no BRBPR, no melena, no hematochezia - Genitourinary Genitourinary: no dysuria - Muskuloskeletal no low back pain Exam Vital Signs Temp Pulse Resp BP Pulse Ox 97.7 F 75 18 112/91 99 11/11/18 07:38 11/11/18 07:38 11/11/18 07:38 11/11/18 07:38 11/11/18 07:38 - General physical appearance Positive: no distress, no pain, obese, other (pleasant) - Eyes Positive: PERRL, normal occular movement. Negative: icteric - Respiratory Positive: normal expansion, normal respiratory effort, clear to auscultation - Cardiovascular Rhythm: regular - Abdomen Abdomen: Present: soft, bowel sounds hypoactive, surgical scars (well healed suprapubic scar). Absent: tender, distended, guarding, rigid - Integumentary no rash, no growths, no abnormal pigmentation - Neurologic Neurologic: alert and oriented to time, place and person, motor strength and sensation are grossly intact - Psychiatric Psychiatric: appropriate mood/affect, intact judgment & insight, cooperative Results - Labs 11/15/18 05:35 11/15/18 05:35 Abnormal lab results 11/15/18 11/15/18 Range/Units 05:35 05:35 Lymphocytes % (Manual) 47.0 H (13.4-35.0) % Monocytes % (Manual) 10.0 H (0.0-7.3) % Glucose 104 H (65-100) mg/dL Diabetes panel 11/15/18 Range/Units 05:35 Sodium 138 (137-145) mmol/L Potassium 4.2 (3.6-5.0) mmol/L Chloride 106.5 (98-107) mmol/L Carbon Dioxide 24 (22-30) mmol/L BUN 17 (7-17) mg/dL Creatinine 0.8 (0.7-1.2) mg/dL Glucose 104 H (65-100) mg/dL Calcium 8.5 (8.4-10.2) mg/dL Calcium panel 11/15/18 Range/Units 05:35 Calcium 8.5 (8.4-10.2) mg/dL Pituitary panel 11/15/18 Range/Units 05:35 Sodium 138 (137-145) mmol/L Potassium 4.2 (3.6-5.0) mmol/L Chloride 106.5 (98-107) mmol/L Carbon Dioxide 24 (22-30) mmol/L BUN 17 (7-17) mg/dL Creatinine 0.8 (0.7-1.2) mg/dL Glucose 104 H (65-100) mg/dL Calcium 8.5 (8.4-10.2) mg/dL Adrenal panel 11/15/18 Range/Units 05:35 Sodium 138 (137-145) mmol/L Potassium 4.2 (3.6-5.0) mmol/L Chloride 106.5 (98-107) mmol/L Carbon Dioxide 24 (22-30) mmol/L BUN 17 (7-17) mg/dL Creatinine 0.8 (0.7-1.2) mg/dL Glucose 104 H (65-100) mg/dL Calcium 8.5 (8.4-10.2) mg/dL - Imaging US - abdomen: report reviewed, image reviewed Additional studies: HIDA, myocardial scan Assessment and Plan - Patient Problems (1) Abdominal pain Current Visit: Yes Status: Acute Qualifiers: Abdominal location: upper abdomen, unspecified Qualified Code(s): R10.10 - Upper abdominal pain, unspecified Plan to address problem: Pt stable. Appears that pain may be related to biliary dyskinesia. Discussed with patient. Discussed procedure, risks, benefits. All questions answered. 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 If she does not qualify, will have to keep in-house and try to find time in the OR. Will delay discharge from hospital . Will follow with you. Please call with questions. time=30min
[2018-11-16] MEDS: PROTONIX PO SCH ×2 (10:00→22:27)
[2018-11-16] MEDS: HEPARIN SUB-Q SCH ×2 (10:00→22:27)
--- NOTE | 2018-11-16 11:53 | Progress Note ---
Assessment and Plan Assessment and plan: Patient is a 48 yo woman with a history of anemia with menorrhagia from large fibroids and GERD who present to [facility] ED with severe intermittent nonradiating squeezing substernal chest pains without aggravating or relieving factors that started 1 week ago. She decided to come to the ED last night because CP started to radiate with numbling and tingling down left arm and lasted longer, 45 minutes. She has been taking ibuprofen for the fibroid pains. She was also took unspecified abx from a Dentist, made her nauseated. She took Tums without relief. Chest pains, GERD/gastritis related: stop Motrin advised, treat with pPi GERD related CP suspected: treat with PPi and consulted GI H/o Anemia with fibroids, stable monitor closely Headaches: pain control, CT head DVT ppx; sq heparin Stress test negative, EGD showed Erosive focal gastritis/antritis), HIDA scan 28% EF gallbladder with reproducible symptoms Disposition: continue inpatient care, GS for gallbladder dyskinesia, awaiting on final decision from General Surgeon, Dr. Senior History Interval history: Patient was seen and examined. Follow-up on current diagnosis of CP/epigastric pains and nausea, resolved. Overnight uneventful. Patient denies any shortness breath. Imaging, nursing note, chart, labs and old chart reviewed. Discussed with patient. Also moderate pain control. Hospitalist Physical - Physical exam Narrative exam: GEN: WDWN, NAD, Awake, Alert, Orientated HEENT: NCAT, EOMI, PERRL, OP Clear NECK: supple, no adenopathy, no thyromegaly, no JVD CVS/HEART: RRR, normal S1S2, pulses present bilaterally CHEST/LUNGS: CTA B, Symmetrical chest expansion, good air entry bilaterally GI/Abdomen: soft, NTND, good bowel sounds, no guarding or rebound /Bladder: no suprapubic tenderness, no CVA or paraspinal tenderness EXT/Skin: no c/c/e, no obvious rash MSK: FROM x 4 Neuro: CN 2-12 grossly intact, no new focal deficits Psych: calm - Constitutional Vitals: Temp Pulse Resp BP Pulse Ox 99.4 F 62 20 122/66 100 11/16/18 07:12 11/16/18 07:12 11/16/18 07:12 11/16/18 07:12 11/16/18 07:12 General appearance: Present: no acute distress, well-nourished, obese Results - Labs CBC & Chem 7: 11/15/18 05:35 11/15/18 05:35 Labs: Laboratory Last Values WBC 4.7 K/mm3 (4.5-11.0) 11/15/18 05:35 RBC 4.07 M/mm3 (3.65-5.03) 11/15/18 05:35 Hgb 12.4 gm/dl (10.1-14.3) 11/15/18 05:35 Hct 36.5 % (30.3-42.9) 11/15/18 05:35 MCV 90 fl (79-97) 11/15/18 05:35 MCH 30 pg (28-32) 11/15/18 05:35 MCHC 34 % (30-34) 11/15/18 05:35 RDW 14.0 % (13.2-15.2) 11/15/18 05:35 Plt Count 308 K/mm3 (140-440) 11/15/18 05:35 Lymph % (Auto) 42.5 % (13.4-35.0) H 11/11/18 07:49 [place] % (Auto) 13.6 % (0.0-7.3) H 11/11/18 07:49 Eos % (Auto) 1.5 % (0.0-4.3) 11/11/18 07:49 Baso % (Auto) 0.8 % (0.0-1.8) 11/11/18 07:49 Lymph # 2.2 K/mm3 (1.2-5.4) 11/11/18 07:49 [place] # 0.7 K/mm3 (0.0-0.8) 11/11/18 07:49 Eos # 0.1 K/mm3 (0.0-0.4) 11/11/18 07:49 Baso # 0.0 K/mm3 (0.0-0.1) 11/11/18 07:49 Add Manual Diff Complete 11/15/18 05:35 Total Counted 100 11/15/18 05:35 Seg Neutrophils % Manager Radiation 11/15/18 05:35 Seg Neuts % (Manual) 41.0 % (40.0-70.0) 11/15/18 05:35 Band Neutrophils % 0 % 11/15/18 05:35 Lymphocytes % (Manual) 47.0 % (13.4-35.0) H 11/15/18 05:35 Reactive Lymphs % (Man) 0 % 11/15/18 05:35 Monocytes % (Manual) 10.0 % (0.0-7.3) H 11/15/18 05:35 Eosinophils % (Manual) 1.0 % (0.0-4.3) 11/15/18 05:35 Basophils % (Manual) 1.0 % (0.0-1.8) 11/15/18 05:35 Metamyelocytes % 0 % 11/15/18 05:35 Myelocytes % 0 % 11/15/18 05:35 Promyelocytes % 0 % 11/15/18 05:35 Blast Cells % 0 % 11/15/18 05:35 Nucleated RBC % Not Reportable 11/15/18 05:35 Seg Neutrophils # 2.2 K/mm3 (1.8-7.7) 11/11/18 07:49 Seg Neutrophils # Man 1.9 K/mm3 (1.8-7.7) 11/15/18 05:35 Band Neutrophils # 0.0 K/mm3 11/15/18 05:35 Lymphocytes # (Manual) 2.2 K/mm3 (1.2-5.4) 11/15/18 05:35 Abs React Lymphs (Man) 0.0 K/mm3 11/15/18 05:35 Monocytes # (Manual) 0.5 K/mm3 (0.0-0.8) 11/15/18 05:35 Eosinophils # (Manual) 0.0 K/mm3 (0.0-0.4) 11/15/18 05:35 Basophils # (Manual) 0.0 K/mm3 (0.0-0.1) 11/15/18 05:35 Metamyelocytes # 0.0 K/mm3 11/15/18 05:35 Myelocytes # 0.0 K/mm3 11/15/18 05:35 Promyelocytes # 0.0 K/mm3 11/15/18 05:35 Blast Cells # 0.0 K/mm3 11/15/18 05:35 WBC Morphology Not Reportable 11/15/18 05:35 Hypersegmented Neuts Not Reportable 11/15/18 05:35 Hyposegmented Neuts Not Reportable 11/15/18 05:35 Hypogranular Neuts Not Reportable 11/15/18 05:35 Smudge Cells Not Reportable 11/15/18 05:35 Toxic Granulation Not Reportable 11/15/18 05:35 Toxic Vacuolation Not Reportable 11/15/18 05:35 Dohle Bodies Not Reportable 11/15/18 05:35 Pelger-Huet Anomaly Not Reportable 11/15/18 05:35 Yuki Rods Not Reportable 11/15/18 05:35 Platelet Estimate Consistent w auto 11/15/18 05:35 Clumped Platelets Not Reportable 11/15/18 05:35 Plt Clumps, EDTA Not Reportable 11/15/18 05:35 Large Platelets Not Reportable 11/15/18 05:35 Giant Platelets Not Reportable 11/15/18 05:35 Platelet Satelliting Not Reportable 11/15/18 05:35 Plt Morphology Comment Not Reportable 11/15/18 05:35 RBC Morphology Normal 11/15/18 05:35 Dimorphic RBCs Not Reportable 11/15/18 05:35 Polychromasia Not Reportable 11/15/18 05:35 Hypochromasia Not Reportable 11/15/18 05:35 Poikilocytosis Not Reportable 11/15/18 05:35 Anisocytosis Not Reportable 11/15/18 05:35 Microcytosis Not Reportable 11/15/18 05:35 Macrocytosis Not Reportable 11/15/18 05:35 Spherocytes Not Reportable 11/15/18 05:35 Pappenheimer Bodies Not Reportable 11/15/18 05:35 Sickle Cells Not Reportable 11/15/18 05:35 Target Cells Not Reportable 11/15/18 05:35 Tear Drop Cells Not Reportable 11/15/18 05:35 Ovalocytes Not Reportable 11/15/18 05:35 Helmet Cells Not Reportable 11/15/18 05:35 Saenz-[place] Bodies Not Reportable 11/15/18 05:35 [place] Path Rings Not Reportable 11/15/18 05:35 Alessia Cells Not Reportable 11/15/18 05:35 Bite Cells Not Reportable 11/15/18 05:35 Crenated Cell Not Reportable 11/15/18 05:35 Elliptocytes Not Reportable 11/15/18 05:35 Acanthocytes (Spur) Not Reportable 11/15/18 05:35 Rouleaux Not Reportable 11/15/18 05:35 Hemoglobin C Crystals Not Reportable 11/15/18 05:35 Schistocytes Not Reportable 11/15/18 05:35 Malaria parasites Not Reportable 11/15/18 05:35 [place] Bodies Not Reportable 11/15/18 05:35 Hem Pathologist Commnt No 11/15/18 05:35 Sodium 138 mmol/L (137-145) 11/15/18 05:35 Potassium 4.2 mmol/L (3.6-5.0) 11/15/18 05:35 Chloride 106.5 mmol/L (98-107) 11/15/18 05:35 Carbon Dioxide 24 mmol/L (22-30) 11/15/18 05:35 Anion Gap 12 mmol/L 11/15/18 05:35 BUN 17 mg/dL (7-17) 11/15/18 05:35 Creatinine 0.8 mg/dL (0.7-1.2) 11/15/18 05:35 Estimated GFR > 60 ml/min 11/15/18 05:35 BUN/Creatinine Ratio 21 % 11/15/18 05:35 Glucose 104 mg/dL (65-100) H 11/15/18 05:35 Calcium 8.5 mg/dL (8.4-10.2) 11/15/18 05:35 Total Bilirubin 0.30 mg/dL (0.1-1.2) 11/13/18 05:11 Direct Bilirubin < 0.2 mg/dL (0-0.2) 11/13/18 05:11 Indirect Bilirubin 0.1 mg/dL 11/13/18 05:11 AST 12 units/L (5-40) 11/13/18 05:11 ALT 8 units/L (7-56) 11/13/18 05:11 Alkaline Phosphatase 43 units/L (35-129) 11/13/18 05:11 Troponin T < 0.010 ng/mL (0.00-0.029) 11/11/18 13:26 Total Protein 6.6 g/dL (6.3-8.2) 11/13/18 05:11 Albumin 3.5 g/dL (3.9-5) L 11/13/18 05:11 Albumin/Globulin Ratio 1.1 % 11/13/18 05:11 Triglycerides 76 mg/dL (2-149) 11/12/18 07:38 Cholesterol 144 mg/dL (50-199) 11/12/18 07:38 LDL Cholesterol Direct 104 mg/dL (50-130) 11/12/18 07:38 HDL Cholesterol 38 mg/dL (40-59) L 11/12/18 07:38 Cholesterol/HDL Ratio 3.78 % 11/12/18 07:38 Lipase 24 units/L (13-60) 11/13/18 05:11 TSH 2.580 mlU/mL (0.270-4.200) 11/12/18 07:38 Active Medications - Current Medications Current Medications: Generic Name Dose Route Start Last Admin Trade Name Freq PRN Reason Stop Dose Admin Acetaminophen 650 mg 11/11/18 13:45 11/11/18 19:40 Tylenol PO 650 mg Q6H PRN Administration Non Cardiac Pain or Temp>100.5 Acetaminophen/Hydrocodone Bitart 1 each 11/11/18 13:45 11/14/18 19:57 [place] 5/325 PO 1 each Q4H PRN Administration Pain, Moderate (4-6) Heparin Sodium (Porcine) 5,000 unit 11/14/18 22:00 11/15/18 21:22 Heparin SUB-Q 5,000 unit Q12HR SCOOTER Administration Sodium Chloride 1,000 mls @ 50 mls/hr 11/14/18 08:00 11/14/18 19:57 Nacl 0.9% 1000 Ml IV 50 mls/hr DIRECT SCOOTER Administration Ondansetron HCl 4 mg 11/11/18 13:45 Zofran IV Q4H PRN Nausea And Vomiting Pantoprazole Sodium 40 mg 11/12/18 13:00 11/15/18 21:21 Protonix PO 40 mg BID SCOOTER Administration Zolpidem Tartrate 5 mg 11/11/18 22:00 11/14/18 23:59 Ambien PO 5 mg QHS PRN Administration Sleep
--- NOTE | 2018-11-16 12:44 | Progress Note ---
Assessment and Plan - Patient Problems (1) Abdominal pain Current Visit: Yes Status: Acute Qualifiers: Abdominal location: upper abdomen, unspecified Qualified Code(s): R10.10 - Upper abdominal pain, unspecified Plan to address problem: Pt stable. Await decision from financial office. flight operations manager to call with decision made. Preference is to send her home and bring her back for surgery. Will follow with you. Please call with questions. time=10min Subjective Date of service: 11/16/18 Patient Reports: Positive: other (reports abdominal cramping. ) Objective Vital Signs - 12hr 11/16/18 11/16/18 05:01 07:12 Temperature 98.1 F 99.4 F Pulse Rate 64 62 Respiratory 16 20 Rate Blood Pressure 113/61 122/66 O2 Sat by Pulse 99 100 Oximetry - General physical appearance no distress, no pain, other (does not appear ill) - Eyes normal occular movement - Abdomen soft, tender (minimal), bowel sounds hypoactive, not distended, not guarding, not rigid - Integumentary no rash, no growths, no abnormal pigmentation - Psychiatric oriented to time, oriented to person, oriented to place, speech is normal, memory intact - Labs 11/15/18 05:35 11/15/18 05:35
[2018-11-17] MEDS: PROTONIX PO SCH ×2 (09:12→22:24)
[2018-11-17] MEDS: HEPARIN SUB-Q SCH ×2 (09:12→22:24)
--- NOTE | 2018-11-17 11:11 | Progress Note ---
Assessment and Plan Assessment and plan: Patient is a 48 yo woman with a history of anemia with menorrhagia from large fibroids and GERD who present to [facility] ED with severe intermittent nonradiating squeezing substernal chest pains without aggravating or relieving factors that started 1 week ago. She decided to come to the ED last night because CP started to radiate with numbness and tingling down left arm and lasted longer, 45 minutes. She has been taking ibuprofen for the fibroid pains. She was also took unspecified abx from a Dentist, made her nauseated. She took Tums without relief. Chest pains, GERD/gastritis related: stop Motrin advised, treat with pPi GERD related CP suspected: treat with PPi and consulted GI H/o Anemia with fibroids, stable monitor closely Headaches: pain control, CT head DVT ppx; sq heparin Stress test negative, EGD showed Erosive focal gastritis/antritis), HIDA scan 28% EF gallbladder with reproducible symptoms Disposition: continue inpatient care, GS for gallbladder dyskinesia, awaiting on final decision from General Surgeon, Dr. Senior History Interval history: Patient was seen and examined. Follow-up on current diagnosis of CP/epigastric pains and nausea, resolved. Overnight uneventful. Patient denies any shortness breath. Imaging, nursing note, chart, labs and old chart reviewed. Discussed with patient. Also moderate pain control. Hospitalist Physical - Physical exam Narrative exam: GEN: WDWN, NAD, Awake, Alert, Orientated HEENT: NCAT, EOMI, PERRL, OP Clear NECK: supple, no adenopathy, no thyromegaly, no JVD CVS/HEART: RRR, normal S1S2, pulses present bilaterally CHEST/LUNGS: CTA B, Symmetrical chest expansion, good air entry bilaterally GI/Abdomen: soft, NTND, good bowel sounds, no guarding or rebound /Bladder: no suprapubic tenderness, no CVA or paraspinal tenderness EXT/Skin: no c/c/e, no obvious rash MSK: FROM x 4 Neuro: CN 2-12 grossly intact, no new focal deficits Psych: calm - Constitutional Vitals: Temp Pulse Resp BP Pulse Ox 97.8 F 66 18 120/54 97 11/17/18 05:11 11/17/18 05:11 11/17/18 05:11 11/17/18 05:11 11/17/18 05:11 General appearance: Present: no acute distress, well-nourished, obese Results - Labs CBC & Chem 7: 11/15/18 05:35 11/15/18 05:35 Labs: Laboratory Last Values WBC 4.7 K/mm3 (4.5-11.0) 11/15/18 05:35 RBC 4.07 M/mm3 (3.65-5.03) 11/15/18 05:35 Hgb 12.4 gm/dl (10.1-14.3) 11/15/18 05:35 Hct 36.5 % (30.3-42.9) 11/15/18 05:35 MCV 90 fl (79-97) 11/15/18 05:35 MCH 30 pg (28-32) 11/15/18 05:35 MCHC 34 % (30-34) 11/15/18 05:35 RDW 14.0 % (13.2-15.2) 11/15/18 05:35 Plt Count 308 K/mm3 (140-440) 11/15/18 05:35 Lymph % (Auto) 42.5 % (13.4-35.0) H 11/11/18 07:49 [place] % (Auto) 13.6 % (0.0-7.3) H 11/11/18 07:49 Eos % (Auto) 1.5 % (0.0-4.3) 11/11/18 07:49 Baso % (Auto) 0.8 % (0.0-1.8) 11/11/18 07:49 Lymph # 2.2 K/mm3 (1.2-5.4) 11/11/18 07:49 [place] # 0.7 K/mm3 (0.0-0.8) 11/11/18 07:49 Eos # 0.1 K/mm3 (0.0-0.4) 11/11/18 07:49 Baso # 0.0 K/mm3 (0.0-0.1) 11/11/18 07:49 Add Manual Diff Complete 11/15/18 05:35 Total Counted 100 11/15/18 05:35 Seg Neutrophils % Dough Molder Hand 11/15/18 05:35 Seg Neuts % (Manual) 41.0 % (40.0-70.0) 11/15/18 05:35 Band Neutrophils % 0 % 11/15/18 05:35 Lymphocytes % (Manual) 47.0 % (13.4-35.0) H 11/15/18 05:35 Reactive Lymphs % (Man) 0 % 11/15/18 05:35 Monocytes % (Manual) 10.0 % (0.0-7.3) H 11/15/18 05:35 Eosinophils % (Manual) 1.0 % (0.0-4.3) 11/15/18 05:35 Basophils % (Manual) 1.0 % (0.0-1.8) 11/15/18 05:35 Metamyelocytes % 0 % 11/15/18 05:35 Myelocytes % 0 % 11/15/18 05:35 Promyelocytes % 0 % 11/15/18 05:35 Blast Cells % 0 % 11/15/18 05:35 Nucleated RBC % Not Reportable 11/15/18 05:35 Seg Neutrophils # 2.2 K/mm3 (1.8-7.7) 11/11/18 07:49 Seg Neutrophils # Man 1.9 K/mm3 (1.8-7.7) 11/15/18 05:35 Band Neutrophils # 0.0 K/mm3 11/15/18 05:35 Lymphocytes # (Manual) 2.2 K/mm3 (1.2-5.4) 11/15/18 05:35 Abs React Lymphs (Man) 0.0 K/mm3 11/15/18 05:35 Monocytes # (Manual) 0.5 K/mm3 (0.0-0.8) 11/15/18 05:35 Eosinophils # (Manual) 0.0 K/mm3 (0.0-0.4) 11/15/18 05:35 Basophils # (Manual) 0.0 K/mm3 (0.0-0.1) 11/15/18 05:35 Metamyelocytes # 0.0 K/mm3 11/15/18 05:35 Myelocytes # 0.0 K/mm3 11/15/18 05:35 Promyelocytes # 0.0 K/mm3 11/15/18 05:35 Blast Cells # 0.0 K/mm3 11/15/18 05:35 WBC Morphology Not Reportable 11/15/18 05:35 Hypersegmented Neuts Not Reportable 11/15/18 05:35 Hyposegmented Neuts Not Reportable 11/15/18 05:35 Hypogranular Neuts Not Reportable 11/15/18 05:35 Smudge Cells Not Reportable 11/15/18 05:35 Toxic Granulation Not Reportable 11/15/18 05:35 Toxic Vacuolation Not Reportable 11/15/18 05:35 Dohle Bodies Not Reportable 11/15/18 05:35 Pelger-Huet Anomaly Not Reportable 11/15/18 05:35 Yuki Rods Not Reportable 11/15/18 05:35 Platelet Estimate Consistent w auto 11/15/18 05:35 Clumped Platelets Not Reportable 11/15/18 05:35 Plt Clumps, EDTA Not Reportable 11/15/18 05:35 Large Platelets Not Reportable 11/15/18 05:35 Giant Platelets Not Reportable 11/15/18 05:35 Platelet Satelliting Not Reportable 11/15/18 05:35 Plt Morphology Comment Not Reportable 11/15/18 05:35 RBC Morphology Normal 11/15/18 05:35 Dimorphic RBCs Not Reportable 11/15/18 05:35 Polychromasia Not Reportable 11/15/18 05:35 Hypochromasia Not Reportable 11/15/18 05:35 Poikilocytosis Not Reportable 11/15/18 05:35 Anisocytosis Not Reportable 11/15/18 05:35 Microcytosis Not Reportable 11/15/18 05:35 Macrocytosis Not Reportable 11/15/18 05:35 Spherocytes Not Reportable 11/15/18 05:35 Pappenheimer Bodies Not Reportable 11/15/18 05:35 Sickle Cells Not Reportable 11/15/18 05:35 Target Cells Not Reportable 11/15/18 05:35 Tear Drop Cells Not Reportable 11/15/18 05:35 Ovalocytes Not Reportable 11/15/18 05:35 Helmet Cells Not Reportable 11/15/18 05:35 Saenz-[place] Bodies Not Reportable 11/15/18 05:35 [place] Rings Not Reportable 11/15/18 05:35 [place] Cells Not Reportable 11/15/18 05:35 Bite Cells Not Reportable 11/15/18 05:35 Crenated Cell Not Reportable 11/15/18 05:35 Elliptocytes Not Reportable 11/15/18 05:35 Acanthocytes (Spur) Not Reportable 11/15/18 05:35 Rouleaux Not Reportable 11/15/18 05:35 Hemoglobin C Crystals Not Reportable 11/15/18 05:35 Schistocytes Not Reportable 11/15/18 05:35 Malaria parasites Not Reportable 11/15/18 05:35 [place] Bodies Not Reportable 11/15/18 05:35 Hem Pathologist Commnt No 11/15/18 05:35 Sodium 138 mmol/L (137-145) 11/15/18 05:35 Potassium 4.2 mmol/L (3.6-5.0) 11/15/18 05:35 Chloride 106.5 mmol/L (98-107) 11/15/18 05:35 Carbon Dioxide 24 mmol/L (22-30) 11/15/18 05:35 Anion Gap 12 mmol/L 11/15/18 05:35 BUN 17 mg/dL (7-17) 11/15/18 05:35 Creatinine 0.8 mg/dL (0.7-1.2) 11/15/18 05:35 Estimated GFR > 60 ml/min 11/15/18 05:35 BUN/Creatinine Ratio 21 % 11/15/18 05:35 Glucose 104 mg/dL (65-100) H 11/15/18 05:35 Calcium 8.5 mg/dL (8.4-10.2) 11/15/18 05:35 Total Bilirubin 0.30 mg/dL (0.1-1.2) 11/13/18 05:11 Direct Bilirubin < 0.2 mg/dL (0-0.2) 11/13/18 05:11 Indirect Bilirubin 0.1 mg/dL 11/13/18 05:11 AST 12 units/L (5-40) 11/13/18 05:11 ALT 8 units/L (7-56) 11/13/18 05:11 Alkaline Phosphatase 43 units/L (35-129) 11/13/18 05:11 Troponin T < 0.010 ng/mL (0.00-0.029) 11/11/18 13:26 Total Protein 6.6 g/dL (6.3-8.2) 11/13/18 05:11 Albumin 3.5 g/dL (3.9-5) L 11/13/18 05:11 Albumin/Globulin Ratio 1.1 % 11/13/18 05:11 Triglycerides 76 mg/dL (2-149) 11/12/18 07:38 Cholesterol 144 mg/dL (50-199) 11/12/18 07:38 LDL Cholesterol Direct 104 mg/dL (50-130) 11/12/18 07:38 HDL Cholesterol 38 mg/dL (40-59) L 11/12/18 07:38 Cholesterol/HDL Ratio 3.78 % 11/12/18 07:38 Lipase 24 units/L (13-60) 11/13/18 05:11 TSH 2.580 mlU/mL (0.270-4.200) 11/12/18 07:38 Active Medications - Current Medications Current Medications: Generic Name Dose Route Start Last Admin Trade Name Freq PRN Reason Stop Dose Admin Acetaminophen 650 mg 11/11/18 13:45 11/11/18 19:40 Tylenol PO 650 mg Q6H PRN Administration Non Cardiac Pain or Temp>100.5 Acetaminophen/Hydrocodone Bitart 1 each 11/11/18 13:45 11/14/18 19:57 [place] 5/325 PO 1 each Q4H PRN Administration Pain, Moderate (4-6) Heparin Sodium (Porcine) 5,000 unit 11/14/18 22:00 11/17/18 09:12 Heparin SUB-Q 5,000 unit Q12HR SCOOTER Administration Sodium Chloride 1,000 mls @ 50 mls/hr 11/14/18 08:00 11/14/18 19:57 Nacl 0.9% 1000 Ml IV 50 mls/hr DIRECT SCOOTER Administration Ondansetron HCl 4 mg 11/11/18 13:45 Zofran IV Q4H PRN Nausea And Vomiting Pantoprazole Sodium 40 mg 11/12/18 13:00 11/17/18 09:12 Protonix PO 40 mg BID SCOOTER Administration Zolpidem Tartrate 5 mg 11/11/18 22:00 11/14/18 23:59 Ambien PO 5 mg QHS PRN Administration Sleep Nutrition/Malnutrition Assess - Dietary Evaluation Nutrition/Malnutrition Findings: Nutrition Notes Start: 11/17/18 08:35 Freq: Status: Active Protocol: Document 11/17/18 08:35 CP (Rec: 11/17/18 08:36 CP [id number]) Co-Sign 11/17/18 08:35 LP Nutrition Notes Need for Assessment generated from: LOS Initial or Follow up Brief Note Subjective/Other Information Pt screened for LOS. Pt reported eating "well" and consuming 100% of her meals. Nutrition Intervention Revisit per MD consult or patient Sign Off request:
--- NOTE | 2018-11-17 11:13 | Discharge Summary ---
Providers - Providers Date of Admission: 11/11/18 08:52 Date of discharge: 11/17/18 Attending physician: CHAZ ZARAGOZA 11/12/18 11:28 Consult to Physician [CONS] Routine Comment: Consulting Provider: JAE JIANG Physician Instructions: Reason For Exam: Abd pains,intractable nausea 11/15/18 14:04 Consult to Physician [CONS] Routine Comment: Consulting Provider: YOVANA SENIOR Physician Instructions: please call him Reason For Exam: Gallbladder dyskinesia Primary care physician: [facility], Hospitalization Condition: Stable Hospital course: Patient is a 48 yo woman with a history of anemia with menorrhagia from large fibroids and GERD who present to [facility] ED with severe intermittent nonradiating squeezing substernal chest pains without aggravating or relieving factors that started 1 week ago. She decided to come to the ED last night because CP started to radiate with numbness and tingling down left arm and lasted longer, 45 minutes. She has been taking ibuprofen for the fibroid pains. She was also took unspecified abx from a Dentist, made her nauseated. She took Tums without relief. Chest pains, GERD/gastritis related: stop Motrin advised, treat with pPi GERD related CP suspected: treat with PPi and consulted GI H/o Anemia with fibroids, stable monitor closely Headaches: pain control, CT head DVT ppx; sq heparin Stress test negative, EGD showed Erosive focal gastritis/antritis), HIDA scan 28% EF gallbladder with reproducible symptoms Disposition: continue inpatient care, GS for gallbladder dyskinesia, awaiting on final decision from General Surgeon, Dr. Senior Disposition: TO HOME OR SELFCARE Time spent for discharge: 34 min Core Measure Documentation - Palliative Care Palliative Care/ Comfort Measures: Not Applicable - Core Measures Any of the following diagnoses?: none - VTE Discharge Requirements Deep Vein Thrombosis/Pulmonary Embolism Present on Admission: No Has pt received <5 days of overlap therapy or INR<2.0: No Anticoagulant overlap therapy prescribed at discharge: No Contraindication No Overlap Therapy order at DC: Not Indicated Exam - Physical Exam Narrative exam: GEN: WDWN, NAD, Awake, Alert, Orientated HEENT: NCAT, EOMI, PERRL, OP Clear NECK: supple, no adenopathy, no thyromegaly, no JVD CVS/HEART: RRR, normal S1S2, pulses present bilaterally CHEST/LUNGS: CTA B, Symmetrical chest expansion, good air entry bilaterally GI/Abdomen: soft, NTND, good bowel sounds, no guarding or rebound /Bladder: no suprapubic tenderness, no CVA or paraspinal tenderness EXT/Skin: no c/c/e, no obvious rash MSK: FROM x 4 Neuro: CN 2-12 grossly intact, no new focal deficits Psych: calm - Constitutional Vitals: Temp Pulse Resp BP Pulse Ox 97.8 F 66 18 120/54 97 11/17/18 05:11 11/17/18 05:11 11/17/18 05:11 11/17/18 05:11 11/17/18 05:11 Plan Activity: other (no strenous activity unless cleared by PCP) Diet: regular Follow up with: ANALILIA ANN MD [Staff Physician] - 7 Days PRIMARY CAREMD [Referring] - 3-5 Days YOVANA SENIOR MD [Staff Physician] - 7 Days Forms: Work/School Release Form Prescriptions: HYDROcodone/APAP 5-325 [[place] 5-325 mg TAB] 1 each PO Q4H PRN #15 tablet PRN Reason: Pain, Moderate (4-6) Pantoprazole [Protonix TAB] 40 mg PO BID 30 Days tablet
--- NOTE | 2018-11-17 17:48 | Event Note ---
Date: 11/17/18 Discharge held due to inability to bring patient back for out-pt procedure. Will attempt to do surgery tomorrow.
[2018-11-18] MEDS ORDERED: ceFAZolin 2 GM in NACL 0.9% 100 ML IV ONE (06:00)
[2018-11-18] MEDS ORDERED: ANCEF/STERILE WATER 2 GM/20 ML 2 GM/20 ML SYRINGE IV SCH (06:00)
[2018-11-18] MEDS ORDERED: TYLENOL PO SCH (06:00)
[2018-11-18] MEDS ORDERED: NEURONTIN PO SCH (06:00)
[2018-11-18] MEDS ORDERED: ZOFRAN ONE (09:03)
[2018-11-18] MEDS ORDERED: ROBINUL ONE ×2 (09:03→10:47)
[2018-11-18] MEDS ORDERED: DECADRON ONE (09:03)
[2018-11-18] MEDS ORDERED: DIPRIVAN 10 MG/ML IV ONE (09:03)
[2018-11-18] MEDS ORDERED: SUBLIMAZE ONE (09:04)
[2018-11-18] MEDS ORDERED: XYLOCAINE 1% 20 mL ONE (09:34)
[2018-11-18] MEDS ORDERED: MARCAINE 0.5% INFILTRATI ONE ×2 (09:34→09:59)
[2018-11-18] MEDS ORDERED: VERSED ONE (09:43)
[2018-11-18] MEDS ORDERED: NARCAN 0.4 MG/1 ML IV PRN (09:50)
[2018-11-18] MEDS ORDERED: SUBLIMAZE IV PRN (09:50)
[2018-11-18] MEDS ORDERED: ZOFRAN IV PRN (09:50)
--- NOTE | 2018-11-18 09:50 | Anesthesia Consultation ---
Anesthesia Consult and Med Hx Date of service: 11/18/18 - Airway Anesthetic Teeth Evaluation: Good ROM Head & Neck: Adequate Mental/Hyoid Distance: Adequate Mallampati Class: Class II Intubation Access Assessment: Good - Pulmonary Exam CTA: Yes - Cardiac Exam Cardiac Exam: RRR - Pre-Operative Health Status ASA Pre-Surgery Classification: ASA1 Proposed Anesthetic Plan: General - Pulmonary Hx Asthma: No COPD: No Hx Pneumonia: Yes - Endocrine Hx End Stage Renal Disease: No - Hematic Hx Anemia: Yes - Other Systems Hx Obesity: Yes
--- NOTE | 2018-11-18 09:50 | Anesthesia Day of Surgery ---
Anesthesia Day of Surgery - Day of Surgery Patient Examined: Yes Patient H&P Reviewed: Yes Patient is NPO: Yes Beta Blockers: No Cardiac Clearance: No Pulmonary Clearance: No
[2018-11-18] MEDS ORDERED: XYLOCAINE 1% 20 mL INFILTRATI ONE (09:59)
[2018-11-18] MEDS ORDERED: ANCEF/STERILE WATER 2 GM/20 ML 2 GM/20 ML SYRINGE IV ONE (09:59)
[2018-11-18] MEDS ORDERED: BLOXIVERZ ONE (10:47)
--- NOTE | 2018-11-18 10:53 | Post Operative Note ---
Date of procedure: 11/18/18 (dictation:[id number]) Pre-op diagnosis: biliary dyskinesia Post-op diagnosis: same Findings: GB with minimal adhesions. Procedure: robotic assisted cholecystectomy IVF - 700cc Anesthesia: GETA Surgeon: YOVANA GERMAN Estimated blood loss: minimal Pathology: list (gallbladder) Specimen disposition: to lab Condition: stable Disposition: PACU
[2018-11-18] MEDS ORDERED: TORADOL ONE (11:01)
[2018-11-18] MEDS: DILAUDID IV PRN ×2 (11:15→11:32)
[2018-11-18] MEDS ORDERED: DILAUDID ONE (11:17)
[2018-11-18] MEDS: NORCO 5/325 PO PRN ×2 (11:40→18:07)
[2018-11-18] MEDS ORDERED: NORCO 5/325 ONE (11:41)
[2018-11-18] MEDS: PROTONIX PO SCH ×2 (12:03→16:32)
[2018-11-18] MEDS: HEPARIN SUB-Q SCH (12:03)
--- NOTE | 2018-11-18 13:12 | Discharge Summary ---
Providers - Providers Date of Admission: 11/11/18 08:52 Date of discharge: 11/18/18 Attending physician: ALBER RAMIREZ 11/12/18 11:28 Consult to Physician [CONS] Routine Comment: Consulting Provider: JAE JIANG Physician Instructions: Reason For Exam: Abd pains,intractable nausea 11/15/18 14:04 Consult to Physician [CONS] Routine Comment: Consulting Provider: YOVANA GERMAN Physician Instructions: please call him Reason For Exam: Gallbladder dyskinesia [facility] Condition: Stable Pertinent studies: Exercise stress test HIDA scan CXR head CT abdominal US Hospital course: Brief history: Patient is a 48 yo woman with a history of anemia with menorrhagia from large fibroids and GERD who present to [facility] ED with severe intermittent nonradiating squeezing substernal chest pains without aggravating or relieving factors that started 1 week ago. Her Stress test negative, but GI consulted for continued symptom. EGD showed Erosive focal gastritis/antritis), HIDA scan 28% EF gallbladder with reproducible symptoms. GS consulted for gallbladder dyskinesia, patient was recommended to f/u outpt but she was unfunded and unable to f/u outpt. GS proceeded with cholecystectomy and she was then discharged home in stable condition. Discharge diagnosis: Chest pains, GERD/gastritis related: Stress test negative, treat with pPi Abdominal pain due to biliary dyskinesia: EGD showed Erosive focal gastriti s/antritis), HIDA scan 28% EF gallbladder with reproducible symptoms. consulted GI and GS, s/p cholecystectomy, H/o Anemia with fibroids, stable monitored closely, outpt follow up Tension Headaches: no acute findings on CT head DVT ppx; sq heparin Hospitalist Physical GEN: WDWN, NAD, Awake, Alert, Orientated HEENT: NCAT, EOMI, PERRL, OP Clear NECK: supple, no adenopathy, no thyromegaly, no JVD CVS/HEART: RRR, normal S1S2, pulses present bilaterally CHEST/LUNGS: CTA B, Symmetrical chest expansion, good air entry bilaterally GI/Abdomen: soft, surgical incision in place EXT/Skin: no c/c/e, no obvious rash MSK: FROM x 4 Neuro: CN 2-12 grossly intact, no new focal deficits Psych: calm Disposition: -01 TO HOME OR SELFCARE Time spent for discharge: 34 minutes Core Measure Documentation - Palliative Care Palliative Care/ Comfort Measures: Not Applicable - Core Measures Any of the following diagnoses?: none Exam - Constitutional Vitals: Temp Pulse Resp BP Pulse Ox 97.2 F L 66 14 147/77 100 11/18/18 12:08 11/18/18 12:08 11/18/18 12:10 11/18/18 12:08 11/18/18 12:08 Plan Activity: advance as tolerated, other (no heavy lifting) Diet: low fat, low salt Wound: per your surgeon's advice Follow up with: ANALILIA ANN MD [Staff Physician] - 7 Days YOVANA GERMAN MD [Staff Physician] - 7 Days PRIMARY CAREMD [Referring] - 3-5 Days Forms: Work/School Release Form Prescriptions: HYDROcodone/APAP 5-325 [[place] 5-325 mg TAB] 1 each PO Q4H PRN #15 tablet PRN Reason: Pain, Moderate (4-6) Pantoprazole [Protonix TAB] 40 mg PO BID 30 Days tablet
--- NOTE | 2018-11-18 13:19 | Operative Report ---
PREOPERATIVE DIAGNOSIS: Biliary dyskinesia. POSTOPERATIVE DIAGNOSIS: Biliary dyskinesia. PROCEDURE: Robotic-assisted cholecystectomy. ATTENDING PHYSICIAN: Ara Senior MD ANESTHESIA: General. ESTIMATED BLOOD LOSS: Minimal. FLUIDS: 1 liter. FINDINGS: Relatively normal appearing gallbladder with some mild adhesions to the adjacent omentum. SPECIMEN: Gallbladder. DRAINS: None. COMPLICATIONS: None. DISPOSITION: Stable, transferred to Recovery Room. INDICATIONS: This is a 48-year-old female who presented to the hospital with severe epigastric/chest pain. The patient was worked up for cardiac pathology. Eventually workup revealed biliary dyskinesia. She had reproduction of her pain with CCK administration. The patient was assessed to be in need for cholecystectomy. Procedure, risks and benefits were explained to the patient. Risks included but were not limited to infection, bleeding, pain, injury to surrounding structures, possible need for open surgery, possible need for further procedures in the future. The patient understood and consented. OPERATIVE NOTE: The patient was brought to the operating room and placed on the table in supine position. After adequate general anesthesia was established, table was turned to the appropriate position for robot docking. Sterile prep and drape was performed. Antibiotics had been given prior to start of the case. SCDs were in place. Time-out was called. I began by placing a Veress needle in the left upper quadrant. I was able to insufflate in the first attempt. This was replaced with a 5 mm port placed under Optiview technique. Upon entry, I saw that there were no injuries to the underlying structures. Under direct vision, we placed a 12 mm port in the subumbilical position and two more 8 mm ports in the right side of the abdomen. We then replaced the 5 mm port with an 8 mm port. Ray-Eloise was inserted into the abdomen to be used during the case and then the robot was docked. All the instruments were inserted under direct vision and then I proceeded to the console, began by elevating the gallbladder over the liver edge, dissecting out Calot's triangle and a large critical view. Once the cystic duct and cystic artery were clearly identified, I then placed clips on the structures; two clips were placed distally, one proximally on the cystic duct and one on either side of the cystic artery, both were divided sharply. Using scissors and electrocautery, gallbladder was then removed from the gallbladder bed. I had a very clean gallbladder bed. There was absolutely no violation of the peritoneal covering and there was no bleeding. The clips were in place. There was no bile drainage or bleeding. Please note that at the very beginning of the case of the case, I took down some mild adhesions of the omentum to the liver and gallbladder. Specimen was left on the side. We then undocked the robot, went back to laparoscopic case. I removed the gauze and then EndoCatch bag was placed. Gallbladder was placed in the bag and then removed from the umbilical port site. Umbilical fascia was closed with a Philip-Renzo fascial closure device using an 0 Vicryl stitch. We then removed the rest of the ports under direct vision, desufflated the abdomen. Additional local was injected into all the port sites. We had done that at the very beginning as well. 4-0 Monocryl subcuticular stitches were then placed to close the skin. Skin was cleaned and dried. Dermabond was placed. The patient tolerated the procedure well. There were no complications. All counts were correct at the end of the case. JOB# [id number] YASMEEN/MASHA
[2018-11-18 16:56] VITALS: BP 136/77
== END 2018-11-18 18:30 | disposition home or self-care (01) | DRG 358 ==
LOC: ED 07:33 → 4A 08:52 → 3A 11-15 15:11
PROVIDERS: ADMIT Internal Medicine; ATTEND Internal Medicine
PROC: 0DB68ZX Excision of Stomach, Via Natural or Artificial Opening Endoscopic, Diagnostic (ICD-10-PCS; principal; 2018-11-14)
PROC: 3E0234Z Introduction of Serum, Toxoid and Vaccine into Muscle, Percutaneous Approach (ICD-10-PCS; 2018-11-15)
PROC: 0FT44ZZ Resection of Gallbladder, Percutaneous Endoscopic Approach (ICD-10-PCS; 2018-11-18)
PROC: 8E0W4CZ Robotic Assisted Procedure of Trunk Region, Percutaneous Endoscopic Approach (ICD-10-PCS; 2018-11-18)
DX: K29.60 Other gastritis without bleeding (principal); K82.8 Other specified diseases of gallbladder; K21.9 Gastro-esophageal reflux disease without esophagitis; D64.9 Anemia, unspecified; E66.9 Obesity, unspecified; R07.89 Other chest pain; G44.209 Tension-type headache, unspecified, not intractable; Z90.711 Acquired absence of uterus with remaining cervical stump; Z82.49 Family history of ischemic heart disease and other diseases of the circulatory system; Z80.3 Family history of malignant neoplasm of breast; Z68.35 Body mass index [BMI] 35.0-35.9, adult; Z23 Encounter for immunization
CPT/HCPCS: 36415; 70450; 71046; 76700; 78227; 78452; 80048; 80061; 80076; 83690; 84443; 84484; 85007; 85025; 85027; 88304; 88305; 88342; 90732; 93005; 93010; 93017; G0378; A9502; A9537; J0690; J1100; J1170; J1644; J1885; J2250; J2270; J2405; J2704; J2710; J2805; J3010; J7030

== ENCOUNTER 2020-10-12 13:37 | Emergency (ER) | payer SELFPAY ==
--- NOTE | 2020-10-12 15:15 | Emergency Department Report ---
ED Headache HPI - General Chief Complaint: Headache Stated Complaint: HEAD PAIN Time Seen by Provider: 10/12/20 14:19 - History of Present Illness Initial Comments: This is a 50-year-old -[place] female complaining of headache for 2.5 weeks not relieved with [id number] medications. she has She is checked her blood pressure several times at a local pharmacy she has recordings for her blood pressure as 160/99 and 177/97 she denies any history of hypertension. She denies visual changes blurry vision or loss of vision she denies chest pain and shortness of breath patient states a week ago she did notice some ankle swelling that has resolved resolved on its own. She denies any nausea vomiting no weakness no loss of consciousness no trauma no dizziness. She has a past medical history of GERD in which she takes Pepcid daily and she reports a surgical history of gallbladder removal 11/19/2019. Currently patient does not have a primary care doctor. She is in no acute distress Head Injury Location: global (She describes as pressure) Recent Head Trauma: no recent headache/trauma Associated Symptoms: denies: denies symptoms, confusion, fatigue, facial pain, fever/chills, flushing, loss of consciousness, nausea/vomiting, nasal congestion, nasal drainage, numbness in legs/feet, seizures, sinus infection, stiff neck, vision changes, weakness Allergies/Adverse Reactions: Allergies No Known Allergies Allergy (Verified 11/11/18 07:34) Home Medications: Ambulatory Orders Acetaminophen [Acetaminophen TAB] 325 mg PO Q6H PRN #15 tablet 11/13/18 HYDROcodone/APAP 5-325 [[place] 5-325 mg TAB] 1 each PO Q4H PRN #15 tablet 11/13/18 Pantoprazole [Protonix TAB] 40 mg PO BID 30 Days tablet 11/13/18 ED Review of Systems ROS: Stated complaint: HEAD PAIN Other details as noted in HPI Comment: All other systems reviewed and negative Constitutional: denies: chills, fever, weakness Eyes: denies: eye pain, eye discharge, vision change ENT: denies: ear pain, dental pain, hearing loss Respiratory: denies: cough, orthopnea, shortness of breath, SOB with exertion, wheezing Cardiovascular: denies: chest pain, palpitations, dyspnea on exertion Endocrine: no symptoms reported. denies: excessive sweating, flushing, intolerance to cold, increased hunger, increased thirst Gastrointestinal: denies: abdominal pain, nausea, vomiting, diarrhea, constipation Genitourinary: denies: urgency, dysuria Musculoskeletal: denies: back pain, joint swelling Skin: denies: rash, lesions, change in color Neurological: headache (Global headache). denies: weakness, numbness, paresthesias, confusion, abnormal gait, vertigo, other Psychiatric: denies: anxiety, depression ED Past Medical Hx - Past Medical History Previous Medical History?: Yes Hx Congestive Heart Failure: No Hx Diabetes: No Hx GERD: Yes Hx Asthma: No Hx COPD: No Additional medical history: FIBROIDS - Surgical History Past Surgical History?: Yes Additional Surgical History: Partial hysterectomy - Social History Smoking Status: Never Smoker Substance Use Type: None - Medications Home Medications: Home Medications Medication Instructions Recorded Confirmed Last Taken Type Acetaminophen [Acetaminophen TAB] 325 mg PO Q6H PRN #15 tablet 11/13/18 Unknown Rx HYDROcodone/APAP 5-325 [[place] 1 each PO Q4H PRN #15 tablet 11/13/18 Unknown Rx 5-325 mg TAB] Pantoprazole [Protonix TAB] 40 mg PO BID 30 Days tablet 11/13/18 Unknown Rx ED Physical Exam - General Limitations: No Limitations General appearance: alert, in no apparent distress - Head Head exam: Present: atraumatic - Eye Eye exam: Present: normal appearance, PERRL, EOMI Pupils: Present: normal accommodation - ENT ENT exam: Present: normal exam, mucous membranes moist - Neck Neck exam: Present: normal inspection, full ROM. Absent: tenderness, lymphadenopathy - Respiratory Respiratory exam: Present: normal lung sounds bilaterally - Cardiovascular Cardiovascular Exam: Present: regular rate, normal heart sounds - GI/Abdominal GI/Abdominal exam: Present: soft. Absent: distended - Extremities Exam Extremities exam: Present: normal inspection, normal capillary refill - Back Exam Back exam: Present: normal inspection - Neurological Exam Neurological exam: Present: alert, oriented X3, CN II-XII intact, normal gait, reflexes normal. Absent: motor sensory deficit - Psychiatric Psychiatric exam: Present: normal affect, normal mood - Skin Skin exam: Present: warm, dry, normal color ED Course Vital Signs 10/12/20 14:04 Temperature 97.9 F Pulse Rate 65 Respiratory 20 Rate Blood Pressure 152/88 [Right] O2 Sat by Pulse 100 Oximetry - Reevaluation(s) Reevaluation #1: 10/12/20 15:17 Patient offered pain medication she refused stating that she will purchase Tylenol for her headache ED Medical Decision Making - Medical Decision Making 50-year-old female with a 2-1/2-week history of a global headache not associated with any nausea vomiting fever chills no visual disturbance no chest pain no shortness of breath. During this time patient is has monitored her blood pressure and it has been consistently elevated with readings of 160/99 and 177/97 today in the emergency room her blood pressure is currently 152/88 with a heart rate of 65 and oxygen saturation on room air of 100%. Neurological exam is negative she has equal pupils they are extraocular movements are intact she has equal upper and lower body strength she has no neurological deficits negative Romberg. I spent 10 to 15 minutes discussing high blood pressure treatment causes with the patient we discussed a diet low in sodium exercise and monitoring and treatment of blood pressure I expressed the need for patient to establish care with primary care physician so that she could be monitored and treated for her blood pressure patient is in total agreement with this plan. She states that she does to take medication and has even refused any Tylenol in the emergency room for her headache. I referred patient to see Dr. Virgilio snow or any other physician of her choice within the next 24 -48 hrs Critical Care Time: No Critical care attestation.: If time is entered above; I have spent that time in minutes in the direct care of this critically ill patient, excluding procedure time. ED Disposition Clinical Impression: Headache Qualifiers: Headache type: tension-type Headache chronicity pattern: chronic headache Intractability: not intractable Qualified Code(s): G44.229 - Chronic tension- type headache, not intractable Hypertension Qualifiers: Hypertension type: essential hypertension Qualified Code(s): I10 - Essential (primary) hypertension Disposition: DC-01 TO HOME OR SELFCARE Is pt being admited?: No Does the pt Need Aspirin: No Condition: Stable Instructions: Hypertension (ED), Preventing Hypertension, Hypertension, Adult, General Headache Without Cause Additional Instructions: Decrease your intake of caffeine or any other stimulants. Decrease alcohol intake. Drink at least 6 to 8 glasses of water daily. Make sure your diet is low in salt eat fresh fruits and vegetables. Exercise at least 30 minutes 3 to 5 days/week. Call and make an appointment with your doctor as soon as possible to get evaluation of your blood pressure and possible treatment. Return to the emergency room if your headache worsens if you develop nausea vomiting fever or weakness . Referrals: PRIMARY CARE, [Primary Care Provider] - 3-5 Days ANALILIA ANN MD [Staff Physician] - 3-5 Days Time of Disposition: 15:24
== END 2020-10-12 15:33 | disposition home or self-care (01) ==
LOC: ED 13:37
CPT/HCPCS: 99282

== ENCOUNTER 2021-01-11 00:08 | Emergency (ER) | payer SELFPAY ==
[2021-01-11] MEDS ORDERED: ASPIRIN 325 MG TAB PO ONE (01:04)
[2021-01-11] MEDS ORDERED: methylPREDNISolone Sod Succinate 125 MG/2 ML INJ IV ONE (01:04)
[2021-01-11] MEDS ORDERED: IPRATROPIUM 0.02% NEBU 2.5 ML IH ONE (01:04)
[2021-01-11] MEDS ORDERED: ALBUTEROL 2.5 MG/3 ML NEBU IH ONE (01:04)
--- NOTE | 2021-01-11 01:48 | Emergency Department Report ---
ED General Adult HPI - General Stated complaint: LYMPH NODES NECK SWOLLEN/PAIN PUI?: No Source: patient Mode of arrival: Ambulatory - History of Present Illness Initial comments: Patient is a 50-year-old -Luxembour[place] female with a history of hypertension and GERD who presents to the ED with complaint of acute onset persistent mild sore throat with painful swollen anterior cervical lymph nodes for the last 5 days. Patient states that she is unable to sleep because of worsening pain. Patient denies fever, chills, nausea, vomiting, dizziness, syncope, chest pain or shortness of breath, ear pain, cough, nasal and sinus congestion, headache, traumatic injury, dysphagia or dysphonia. MD Complaint: swollen painful anterior lymph nodes; sore throat -: Sudden, days(s) (5) Location: mouth, neck Radiation: non-radiation Severity scale (0 -10): 7 Quality: aching, sharp Consistency: constant Improves with: none Worsens with: none Associated Symptoms: denies other symptoms. denies: confusion, chest pain, cough, diaphoresis, fever/chills, headaches, loss of appetite, malaise, nausea/vomiting, rash, seizure, shortness of breath, syncope, weakness Treatments Prior to Arrival: none - Related Data Previous Rx's Medication Instructions Recorded Last Taken Type Acetaminophen [Acetaminophen TAB] 325 mg PO Q6H PRN #15 tablet 11/13/18 Unknown Rx HYDROcodone/APAP 5-325 [[place] 1 each PO Q4H PRN #15 tablet 11/13/18 Unknown Rx 5-325 mg TAB] Pantoprazole [Protonix TAB] 40 mg PO BID 30 Days tablet 11/13/18 Unknown Rx Amoxicillin [Trimox CAP] 500 mg PO Q8H #30 capsule 01/11/21 Unknown Rx Ibuprofen [Motrin] 800 mg PO Q8HR PRN #30 tablet 01/11/21 Unknown Rx predniSONE [Deltasone] 40 mg PO QDAY #10 tab 01/11/21 Unknown Rx Allergies Allergy/AdvReac Type Severity Reaction Status Date / Time No Known Allergies Allergy Verified 11/11/18 07:34 ED Review of Systems ROS: Stated complaint: LYMPH NODES NECK SWOLLEN/PAIN Other details as noted in HPI Constitutional: denies: chills, fever Eyes: denies: eye pain, eye discharge, vision change ENT: throat pain. denies: ear pain Respiratory: denies: cough, shortness of breath, wheezing Cardiovascular: denies: chest pain, palpitations Endocrine: no symptoms reported Gastrointestinal: denies: abdominal pain, nausea, vomiting, diarrhea Genitourinary: denies: urgency, dysuria, discharge Musculoskeletal: denies: back pain, joint swelling, arthralgia Skin: denies: rash, lesions Neurological: denies: headache, weakness, paresthesias Psychiatric: denies: anxiety, depression Hematological/Lymphatic: denies: easy bleeding, easy bruising ED Past Medical Hx - Past Medical History Hx Congestive Heart Failure: No Hx Diabetes: No Hx GERD: Yes Hx Asthma: No Hx COPD: No Additional medical history: FIBROIDS - Surgical History Additional Surgical History: Partial hysterectomy - Social History Smoking Status: Never Smoker Substance Use Type: None - Medications Home Medications: Home Medications Medication Instructions Recorded Confirmed Last Taken Type Acetaminophen [Acetaminophen TAB] 325 mg PO Q6H PRN #15 tablet 11/13/18 Unknown Rx HYDROcodone/APAP 5-325 [[place] 1 each PO Q4H PRN #15 tablet 11/13/18 Unknown Rx 5-325 mg TAB] Pantoprazole [Protonix TAB] 40 mg PO BID 30 Days tablet 11/13/18 Unknown Rx Amoxicillin [Trimox CAP] 500 mg PO Q8H #30 capsule 01/11/21 Unknown Rx Ibuprofen [Motrin] 800 mg PO Q8HR PRN #30 tablet 01/11/21 Unknown Rx predniSONE [Deltasone] 40 mg PO QDAY #10 tab 01/11/21 Unknown Rx ED Physical Exam - General General appearance: alert, in no apparent distress - Head Head exam: Present: atraumatic, normocephalic, normal inspection - Eye Eye exam: Present: normal appearance, PERRL, EOMI Pupils: Present: normal accommodation - ENT ENT exam: Present: mucous membranes moist, TM's normal bilaterally, normal external ear exam, other (Mild erythematous oropharynx and tonsils, uvula is midline) - Neck Neck exam: Present: normal inspection, full ROM, lymphadenopathy (Palpable mildly swollen severely tender anterior cervical lymph nodes) - Respiratory Respiratory exam: Present: normal lung sounds bilaterally. Absent: respiratory distress, wheezes, rales, rhonchi, chest wall tenderness, accessory muscle use, decreased breath sounds, prolonged expiratory - Cardiovascular Cardiovascular Exam: Present: regular rate, normal rhythm, normal heart sounds. Absent: systolic murmur, diastolic murmur, rubs, gallop - GI/Abdominal GI/Abdominal exam: Present: soft, normal bowel sounds. Absent: tenderness, guarding, rebound, hyperactive bowel sounds, hypoactive bowel sounds, organomegaly, mass - Extremities Exam Extremities exam: Present: normal inspection, full ROM, normal capillary refill - Back Exam Back exam: Present: normal inspection, full ROM. Absent: tenderness, CVA tenderness (R), CVA tenderness (L), muscle spasm, paraspinal tenderness, vertebral tenderness - Neurological Exam Neurological exam: Present: alert, oriented X3, CN II-XII intact, normal gait, reflexes normal - Psychiatric Psychiatric exam: Present: normal affect, normal mood - Skin Skin exam: Present: warm, dry, intact, normal color. Absent: rash ED Course Vital Signs 01/11/21 01:41 Temperature 97.9 F Pulse Rate 68 Respiratory 18 Rate Blood Pressure 173/84 O2 Sat by Pulse 100 Oximetry ED Medical Decision Making - Medical Decision Making This is a 50-year-old -[place]ux[place]bour[place] female with a history of hypertension and GERD who presents to the ED with complaint of acute onset persistent mild sore throat with painful swollen anterior cervical lymph nodes for the last 5 days. Patient states that she is unable to sleep because of worsening pain. In the ED, patient is alert and oriented x3 and is not in any distress. Patient was discharged home on pain medications and antibiotics and advised to follow-up with her primary care physician in 5 to 7 days for reevaluation. Patient is advised return to the ED immediately if symptoms get worse. - Differential Diagnosis Lymphadenopathy; pharyngitis; viral syndrome; URI Critical care attestation.: If time is entered above; I have spent that time in minutes in the direct care of this critically ill patient, excluding procedure time. ED Disposition Clinical Impression: Anterior cervical lymphadenopathy Acute pharyngitis Qualifiers: Pharyngitis/tonsillitis etiology: other specified organisms Qualified Code(s): J02.8 - Acute pharyngitis due to other specified organisms Disposition: TO HOME OR SELFCARE Is pt being admited?: No Does the pt Need Aspirin: No Condition: Stable Instructions: Lymphangitis, Adult, Lymphadenopathy, Pharyngitis, [id number] Additional Instructions: Take medication with food, drink plenty of fluids and follow-up with your primary care physician in 7 to 10 days for reevaluation. Return to the ED immediately if symptoms get worse. Prescriptions: predniSONE [Deltasone] 40 mg PO QDAY #10 tab Ibuprofen [Motrin] 800 mg PO Q8HR PRN #30 tablet PRN Reason: Pain , Severe (7-10) Amoxicillin [Trimox CAP] 500 mg PO Q8H #30 capsule Referrals: [facility] [Provider Group] - 7-10 days Forms: Work/School Release Form(ED) Time of Disposition: 01:46 Print Language: [place]
[2021-01-11 01:59] VITALS: BP 132/78
== END 2021-01-11 01:59 | disposition home or self-care (01) ==
LOC: ED 00:08
DX: J02.9 Acute pharyngitis, unspecified (principal); R59.0 Localized enlarged lymph nodes; K21.9 Gastro-esophageal reflux disease without esophagitis; Z90.710 Acquired absence of both cervix and uterus; Z98.890 Other specified postprocedural states; Z79.899 Other long term (current) drug therapy
CPT/HCPCS: 99282

== ENCOUNTER 2021-09-02 21:34 | Emergency (ER) | payer SELFPAY ==
[2021-09-03] MEDS ORDERED: HYDROcodone/ACETAMINOPHEN 10-325MG TAB PO ONE (02:20)
[2021-09-03 02:49] VITALS: BP 139/77
== END 2021-09-03 03:34 | disposition home or self-care (01) ==
LOC: ED 21:34
DX: M54.2 Cervicalgia (principal); Z53.21 Procedure and treatment not carried out due to patient leaving prior to being seen by health care provider